=== PATIENT | female | born 1955 | race Asian ===

== ENCOUNTER 2016-09-24 21:05 | Inpatient (IN) | payer MEDICAID ==
[2016-09-24] MEDS ORDERED: Albuterol Nebulizer 2.5mg/3mL HHN PRN (22:56)
[2016-09-24] MEDS ORDERED: Maalox 30 mL Cup PO PRN (22:58)
[2016-09-24 23:01] VITALS: BP 137/72
[2016-09-24] MEDS: D5-0.45NS 1,000 ML IV SCH (23:43)
[2016-09-25] MEDS: Levofloxacin 500mg/100mL 500 MG/100 ML BAG IV SCH ×2 (00:26→23:58)
[2016-09-25] MEDS: metroNIDAZOLE 500mg/NS 100mL 500 MG/100 ML BAG IV SCH ×3 (05:31→21:27)
[2016-09-25 07:02] LABS: % EOSINOPHILS 1.5 % (0.0-5.0); % LYMPHOCYTES 10.5 % (20.0-50.0); HEMATOCRIT 33.4 % (35.0-45.0); HEMOGLOBIN 11.5 gm/dL (11.7-15.5); MEAN CELL VOLUME 82.8 fl (81-100); MEAN CORPUSCULAR HEMOGLOBIN 28.5 pg (27.0-31.0); MEAN CORPUSCULAR HGB CONC 34.5 pg (28.0-36.0); MEAN PLATELET VOLUME 8.5 fl; PLATELET COUNT 221 Th/cmm (150-400); RED BLOOD COUNT 4.04 Mil/cmm (3.80-5.10); RED CELL DISTRIBUTION WIDTH 11.4 % (11.5-20.0); WHITE BLOOD COUNT 8.6 Th/cmm (4.8-10.8)
[2016-09-25 07:08] LABS: ALB/GLOB RATIO 0.9 (1.0-1.8); ANION GAP 6.5 (7.0-16.0); BILIRUBIN,TOTAL 0.6 mg/dL (0.3-1.0); BUN - UREA NITROGEN 10 mg/dL (7-25); BUN/CREATININE RATIO 12.5; CALCIUM SERUM 8.8 mg/dL (8.6-10.3); CARBON DIOXIDE 26.2 mEq/L (21.0-31.0); CHLORIDE 108 mEq/L (98-107); CREATININE - SERUM 0.8 mg/dL (0.6-1.2); GLUCOSE 129 mg/dL (70-105); POTASSIUM SERUM 3.7 mEq/L (3.5-5.1); SGOT 23 U/L (13-39); SGPT/ALT 23 U/L (7-52); SODIUM SERUM 137 mEq/L (136-145)
[2016-09-25 07:09] LABS: ALKALINE PHOSPHATASE 110 U/L (34-104); MAGNESIUM 2.1 mg/dL (1.9-2.7)
[2016-09-25 07:14] LABS: INR 1.08 (0.5-1.4); PROTHROMBIN TIME (TEST) 10.7 SECONDS (9.5-11.5)
[2016-09-25 07:49] LABS: TSH 1.4 uIU/ml (0.34-5.60)
[2016-09-25] MEDS: Morphine Sulfate 2 mg/mL 1mL Syr IVP PRN (09:06)
[2016-09-25] MEDS ORDERED: Morphine Sulfate 2 mg/mL 1mL Syr IVP PRN (11:02)
--- NOTE | 2016-09-25 11:39 | Diagnostic Imaging Report ---
Portable chest x-ray History: Shortness of breath Allowing for portable technique the heart size is normal. No focal pulmonary parenchymal processes. No hilar or mediastinal abnormalities. Impression: No acute abnormalities.
[2016-09-25] MEDS: D5-0.45NS 1,000 ML IV SCH (11:55)
--- NOTE | 2016-09-25 12:05 | Internal Medicine Prog Note ---
Internal Medicine Subjective - Subjective Service Date: 09/25/16 ([id number] ) Internal Medicine Objective - Results Result Diagrams: 09/25/16 05:50 09/25/16 05:50 Recent Labs: Laboratory Last Values WBC 8.6 Th/cmm (4.8-10.8) 09/25/16 05:50 RBC 4.04 Mil/cmm (3.80-5.10) 09/25/16 05:50 Hgb 11.5 gm/dL (11.7-15.5) L 09/25/16 05:50 Hct 33.4 % (35.0-45.0) L 09/25/16 05:50 MCV 82.8 fl (81-100) 09/25/16 05:50 MCH 28.5 pg (27.0-31.0) 09/25/16 05:50 MCHC Differential 34.5 pg (28.0-36.0) 09/25/16 05:50 RDW 11.4 % (11.5-20.0) L 09/25/16 05:50 Plt Count 221 Th/cmm (150-400) 09/25/16 05:50 MPV 8.5 fl 09/25/16 05:50 Neutrophils % 81.0 % (40.0-80.0) H 09/25/16 05:50 Lymphocytes % 10.5 % (20.0-50.0) L 09/25/16 05:50 Monocytes % 7.0 % (2.0-10.0) 09/25/16 05:50 Eosinophils % 1.5 % (0.0-5.0) 09/25/16 05:50 Basophils % 0.0 % (0.0-2.0) 09/25/16 05:50 PT 10.7 SECONDS (9.5-11.5) 09/25/16 05:50 INR 1.08 (0.5-1.4) 09/25/16 05:50 PTT (Actin FS) 26.7 SECONDS (26.0-38.0) 09/25/16 05:50 Sodium 137 mEq/L (136-145) 09/25/16 05:50 Potassium 3.7 mEq/L (3.5-5.1) 09/25/16 05:50 Chloride 108 mEq/L (98-107) H 09/25/16 05:50 Carbon Dioxide 26.2 mEq/L (21.0-31.0) 09/25/16 05:50 Anion Gap 6.5 (7.0-16.0) L 09/25/16 05:50 BUN 10 mg/dL (7-25) 09/25/16 05:50 Creatinine 0.8 mg/dL (0.6-1.2) 09/25/16 05:50 Est GFR ( Amer) > 60.0 ml/min (>90) 09/25/16 05:50 Est GFR (Non-Af Amer) > 60.0 ml/min 09/25/16 05:50 BUN/Creatinine Ratio 12.5 09/25/16 05:50 Glucose 129 mg/dL (70-105) H 09/25/16 05:50 Calcium 8.8 mg/dL (8.6-10.3) 09/25/16 05:50 Magnesium 2.1 mg/dL (1.9-2.7) 09/25/16 05:50 Total Bilirubin 0.6 mg/dL (0.3-1.0) 09/25/16 05:50 AST 23 U/L (13-39) 09/25/16 05:50 ALT 23 U/L (7-52) 09/25/16 05:50 Alkaline Phosphatase 110 U/L (34-104) H 09/25/16 05:50 Ammonia 53 umol/L (16-53) 09/25/16 05:50 Total Protein 7.7 gm/dL (6.0-8.3) 09/25/16 05:50 Albumin 3.6 gm/dL (3.7-5.3) L 09/25/16 05:50 Globulin 4.1 gm/dL 09/25/16 05:50 Albumin/Globulin Ratio 0.9 (1.0-1.8) L 09/25/16 05:50 TSH 1.40 uIU/ml (0.34-5.60) 09/25/16 05:50 - Physical Exam Vitals and I&O: Vital Signs Temp 97.2 F 09/25/16 00:00 Pulse 86 09/25/16 08:00 Resp 16 09/25/16 08:00 BP 128/77 09/25/16 00:00 Pulse Ox 99 09/25/16 08:00 Intake & Output 09/24/16 09/25/16 09/25/16 18:59 06:59 18:59 Intake Total 975 Balance 975 Weight (lbs) 134 lb 3.2 oz Intake: Intake, IV Amount 975 D5-0.45NS 1,000 ml @ 100 975 mls/hr IV .Q10H [facility] Rx#: [id number] Active Medications: Current Medications Acetaminophen (Tylenol) 650 mg PO Q4HR PRN PRN Reason: Pain or Fever >101 Stop: 11/23/16 22:57 Al Hydrox/Mg Hydrox/Simethicone (Maalox) 30 ml PO Q6HR PRN PRN Reason: GI DISTRESS Stop: 11/23/16 22:57 Albuterol Sulfate (Albuterol 2.5mg/3ml Neb Ud) 2.5 mg HHN Q2HR PRN PRN Reason: Shortness of Breath or Wheeze Stop: 11/23/16 22:55 Clonidine HCl (Catapres) 0.1 mg PO Q6HR PRN PRN Reason: SBP GREATER THAN 160 Stop: 11/23/16 22:55 Heparin Sodium (Porcine) (Heparin) 5,000 units SUBQ Q12HR [facility] Stop: 11/24/16 08:59 Last Admin: 09/25/16 09:06 Dose: 5,000 units Dextrose/Sodium Chloride (D5-0.45ns) 1,000 mls @ 100 mls/hr IV .Q10H [facility] Stop: 11/23/16 22:59 Last Admin: 09/25/16 11:55 Dose: 100 mls/hr Levofloxacin (Levaquin Pb) 500 mg in 100 mls @ 100 mls/hr IV Q24HR [facility] Stop: 11/23/16 22:59 Last Admin: 09/25/16 00:26 Dose: 100 mls/hr Metronidazole (Flagyl) 500 mg in 100 mls @ 100 mls/hr IV Q8HR [facility] Stop: 11/24/16 04:59 Last Admin: 09/25/16 05:31 Dose: 100 mls/hr Ketorolac Tromethamine (Toradol) 30 mg IV Q6H PRN PRN Reason: Pain Stop: 09/30/16 11:28 Last Admin: 02/13/17 11:54 Dose: 30 mg Meclizine HCl (Antivert) 25 mg PO DAILY PRN PRN Reason: Nausea / Vomiting Stop: 11/23/16 22:55 Morphine Sulfate (Morphine) 2 mg IVP Q4HR PRN PRN Reason: Pain (Severe) Stop: 11/23/16 23:00 Last Admin: 09/25/16 09:06 Dose: 2 mg Morphine Sulfate (Morphine) 2 mg IVP NOW PRN PRN Reason: Pain (Severe) Stop: 11/24/16 11:01 Last Admin: 09/25/16 11:14 Dose: 2 mg Ondansetron HCl (Zofran) 4 mg IV Q8H PRN PRN Reason: Nausea / Vomiting Stop: 11/23/16 22:57 Last Admin: 09/25/16 09:39 Dose: 4 mg Zolpidem Tartrate (Ambien) 10 mg PO HS PRN PRN Reason: Insomnia Stop: 11/23/16 22:55 Last Admin: 09/25/16 00:37 Dose: 10 mg Internal Medicine Assmt/Plan - Assessment Assessment: abd pain acute cholecystitis intractable vomitting
[2016-09-25] MEDS ORDERED: Bupivacaine 0.5% W/Ep 10 mL Vial INJ ONE (13:15)
[2016-09-25] MEDS ORDERED: Midazolam 1mg/ml 2 ml vial IV ONE (13:31)
--- NOTE | 2016-09-25 13:41 | History & Physical ---
CHIEF COMPLAINT: Abdominal pain. HISTORY OF PRESENT ILLNESS: This is a 61-year-old [place] female who is a direct admission from [facility]. According to son at bedside, the patient has been having a 1-week history of abdominal pain associated with nausea and vomiting, but denied any fevers. Due to the severity of pain, the patient was brought to the [place] ER yesterday. For continuation of care, the patient is now here at [facility]. PAST SURGICAL HISTORY: None per patient. ALLERGIES: No drug allergies. SOCIAL HISTORY: The patient denies any smoking, drinking, or any alcohol usage. FAMILY HISTORY: Noncontributory. REVIEW OF SYSTEMS: GENERAL: Denies any fever or chills, but complains of 10/10 pain. CARDIOVASCULAR: Denies any chest pain. RESPIRATORY: Denies any shortness of breath. GASTROINTESTINAL: Complains of abdominal pain, nausea and vomiting as well. All other systems are reviewed by me and are negative. MEDICATIONS: GENERAL: The patient appears in severe pain. VITAL SIGNS: Temperature 97.2, heart rate 69, blood pressure 120/77, respirations 18, O2 sat 98%. HEENT: Head; normocephalic, atraumatic. NECK: Supple. No mass. LUNGS: Clear bilaterally upon auscultation. HEART: Regular rate and rhythm. No murmurs or gallops. SKIN: Intact, warm and dry to touch. ABDOMEN: Right upper quadrant noted with tenderness. LABORATORY DATA: WBC 8.6, H 12.5 and 33.4. Sodium 137, potassium 3.7, BUN 10, creatinine 0.8. The patient had a chest x-ray done here, the impression is no acute abnormalities. ASSESSMENT: Abdominal pain, acute cholecystitis, intractable vomiting. PLAN: The patient to be admitted to the med/surg unit. The patient will have a consultation with Dr. Romano. IV fluids for hydration. The patient will be kept n.p.o. for now, Levaquin IV q. 24 and Pain Management and also Flagyl 500 mg IV. We will continue to monitor the patient. JOB# [id number]
[2016-09-25] MEDS ORDERED: Meperidine 50 mg/mL 1mL Syr ONE (13:46)
[2016-09-25] MEDS ORDERED: Neostigmine 10mg/10mL Vial ONE (13:56)
[2016-09-25] MEDS ORDERED: Meperidine 25 mg/mL 1mL Syr IVP PRN (14:39)
[2016-09-25] MEDS ORDERED: Lactated Ringer 1,000 ML IV SCH (14:45)
[2016-09-25] MEDS ORDERED: Bupivacaine 0.5% W/Ep 10 mL Vial ONE ×3 (14:59)
[2016-09-25] MEDS ORDERED: Meperidine 25 mg/mL 1mL Syr ONE (15:12)
--- NOTE | 2016-09-25 15:21 | Consultation ---
REFERRING PHYSICIAN: Dr. Bailon. REASON FOR CONSULTATION: Severe abdominal pain. Thank you for referring this patient to me. HISTORY OF PRESENT ILLNESS: This is a 61-year-old female who has been having pain in the epigastric area for the last 1 week with nausea and vomiting. She was seen at [facility] and gallbladder ultrasound showed stones. She was sent to the ER at this facility. LABORATORY STUDIES: Show the WBC to be normal, hemoglobin 11.5, platelet count is normal. Chemistry: Liver function tests are within normal limits. EKG and chest x-ray were done. test done, negative. PHYSICAL EXAMINATION: ABDOMEN: Severe tenderness in the right upper quadrant radiating to the back. The patient is writhing about in pain. IMPRESSION: Severe calculus cholecystitis. PLAN: Laparoscopic versus open cholecystectomy. Informed consent discussed with the son who speaks [place] well and complications also discussed including infection, bleeding and biliary leakage. We will take to surgery as soon as possible. [facility]# [id number] [facility]
--- NOTE | 2016-09-25 19:28 | Operative Report ---
PREOPERATIVE DIAGNOSIS: Calculous cholecystitis, acute POSTOPERATIVE DIAGNOSIS: Hydrops of the gallbladder ESTIMATED BLOOD LOSS: 30 mL. SURGEON: Piotr Romano M.D. ANESTHESIA: General. ANESTHESIOLOGIST: Obdulia Mcgregor M.D. OPERATIVE FINDINGS: Markedly inflamed gallbladder with thick wall. Because of distention, the gallbladder had to be evacuated. Culture was taken of the gallbladder content. DESCRIPTION OF PROCEDURE: The patient was given general anesthesia. The abdomen was prepped with ChloraPrep and draped in appropriate manner. A supraumbilical incision was made along the skin line. A Veress needle was inserted. Insufflation with CO2 was carried out successfully. A 10 mm trocar was placed through this endoscope was introduced. There was good visualization of the intra-abdominal cavity. The omentum was adhered to the gallbladder. Another 10 mm trocar was placed in upper abdomen and two 5 mm trocars were placed in the right flank. The operating table was elevated at the head and turned to the left side. The omentum was freed from its attachment to the gallbladder. Because of marked distention of the gallbladder, this was aspirated with an 18-gauge needle. The fundus and infundibulum of the gallbladder was then grasped and blunt dissection was carried out at the infundibulum stripping away very edematous tissues. Two photographs were taken at this point. The cystic duct was identified. This was rather large and this was clipped with large clips, 3 towards the common duct and ____ proximally and divided. Cystic artery was next identified and clipped and good control was done after several applications. The gallbladder was removed in appropriate fashion with blunt and sharp dissection with cautery. There was oozing of the liver bed, which was cauterized. Irrigation with saline solution was done and was insufflated into the gallbladder area and a Monster-Stanley drain was left to better monitor any drainage from the liver bed. A 0.5% Marcaine was injected into the incision sites. The skin was closed with richelle. The patient tolerated the procedure well. JOB# [id number]
--- NOTE | 2016-09-26 03:39 | Admit Criteria Form ---
Admit Criteria Forms - Admit Criteria Diagnosis: GALLBLADDER OR BILE DUCT INFLAMMATION OR STONE Clinical Indications for Admission to Inpatient Care ( Place 'X' for any and all applicable criteria): Admission is indicated for patients with ANY ONE of the following(1)(2)(3)(4)(5) : [ ]I. Acute cholecystitis as indicated by ALL of the following: [ ]a) Right upper quadrant pain, mass, or tenderness [ ]b) Systemic signs of inflammation indicated by ANY ONE of the following: [ ]i) Fever [ ]ii) C-reactive protein level greater than 10 mg/L (95 nmol/L) [ ]iii) White blood cell count greater than 10,000/mm3 (10 x109/L) or less than 4000/mm3 (4 x109/L) [X]II. Inpatient admission required rather than observation care (Also use Gallbladder or Bile Duct Inflammation or Stone: Observation Care as appropriate) because of ANY ONE of the following: [ ]a) Common bile duct obstruction diagnosed [X]b) Vomiting that is severe or persistent [X]c) Severe pain requiring acute inpatient management [ ]d) Signs of intestinal obstruction or peritonitis [A] [ ]e) Severe electrolyte abnormalities requiring inpatient care [ ]f) Absent bowel sounds with complete ileus(8) [ ]g) Hemodynamic instability [ ]h) High fever or infection requiring inpatient admission as indicated by ANY ONE of the following (9): [ ]1) Appropriate outpatient or observation care antimicrobial Treatment. unavailable, not effective, or not feasible [ ]2) Temperature greater than 104.9 degrees F (40.5 degrees C) (oral) [ ]3) Temperature greater than 103.1 degrees F (39.5 degrees C) (oral) or less than 96.8 degrees F (36 degrees C) (rectal) that does not respond to all emergency treatment measures [ ]4) Documented bacteremia [ ]i) IV fluid to replace significant ongoing losses (greater than 3 L/m2 per day) [ ]j) Percutaneous or open drainage (eg, abscess, biliary tract) procedures [X ]k) Immediate inpatient surgery [ ]l) Other condition, treatment or monitoring requiring inpatient admission [ ]III. Acute cholangitis as indicated by ALL of the following(9)(10): [ ]a) Systemic signs of inflammation indicated by ANY ONE of the following: [ ]i) Fever [ ]ii) C-reactive protein level greater than 10 mg/L (95 nmol /L) [ ]iii) White blood cell count greater than 10,000/mm3 (10 x109/L) or less than 4000/mm3 (4 x109/L) [ ]b) Evidence of common bile duct disease indicated by ANY ONE of the following: [ ]i) Total serum bilirubin level greater than or equal to 2 mg/dL (34 micromoles/L) [ ]ii) Liver function test (alkaline phosphatase (ALP), r- glutamyltransferase (GGT), aspartate aminotransferase (AST), or alanine aminotransferase (ALT)) greater than 1.5 times the upper limit of normal[B] [ ]iii) Hepatobiliary imaging showing biliary dilatation or evidence of etiology (eg, stricture, stone, previously placed stent) Extended stay beyond goal length of stay may be needed for (1)(2)): [ ]a) Bacteremia or Hemodynamic instability [ ]b) Cholecystectomy [ ]c) Other surgical procedure(24) [ ]d) Percutaneous or endoscopic ultrasound-guided cholecystostomy The original [facility] [employer] content created by [facility] [employer] has been revised. The portions of the content which have been revised are identified through the use of italic text or in bold, and [facility] has neither reviewed nor approved the modified material. All other unmodified content is copyright [facility]. Please see references footnoted in the original [facility] edition 2016 Admit Criteria Met?: Yes
[2016-09-26] MEDS: metroNIDAZOLE 500mg/NS 100mL 500 MG/100 ML BAG IV SCH (05:04)
[2016-09-26 05:15] LABS: URINE BILIRUBIN NEGATIVE (NEGATIVE); URINE BLOOD NEGATIVE (NEGATIVE); URINE COLOR YELLOW; URINE GLUCOSE (UA) 250 mg/dL (NEGATIVE); URINE KETONE NEGATIVE (NEGATIVE); URINE PROTEIN NEGATIVE (NEGATIVE); URINE RBC 0-2 /hpf (0-5); URINE WBC 0-2 /hpf (0-5)
[2016-09-26 05:16] LABS: URINE BACTERIA OCCASIONAL /hpf (NONE SEEN); URINE EPITHELIAL CELLS OCCASIONAL /lpf (FEW)
[2016-09-26] MEDS: Morphine Sulfate 2 mg/mL 1mL Syr IVP PRN ×4 (05:21→17:51)
[2016-09-26 07:08] LABS: % BASOPHILS 0.3 % (0.0-2.0); % EOSINOPHILS 1.3 % (0.0-5.0); % LYMPHOCYTES 14.8 % (20.0-50.0); % MONOCYTES 8.2 % (2.0-10.0); % NEUTROPHILS 75.4 % (40.0-80.0); HEMATOCRIT 34.7 % (35.0-45.0); HEMOGLOBIN 11.6 gm/dL (11.7-15.5); MEAN CELL VOLUME 84.2 fl (81-100); MEAN CORPUSCULAR HEMOGLOBIN 28.1 pg (27.0-31.0); MEAN CORPUSCULAR HGB CONC 33.4 pg (28.0-36.0); MEAN PLATELET VOLUME 8.9 fl; NEUTROPHILE ABSOLUTE 4.7 Th/cmm (1.8-8.0); PLATELET COUNT 228 Th/cmm (150-400); RED BLOOD COUNT 4.12 Mil/cmm (3.80-5.10); RED CELL DISTRIBUTION WIDTH 11.3 % (11.5-20.0)
[2016-09-26 07:21] LABS: WHITE BLOOD COUNT 6.2 Th/cmm (4.8-10.8)
[2016-09-26 07:33] LABS: ALB/GLOB RATIO 0.9 (1.0-1.8); ALKALINE PHOSPHATASE 269 U/L (34-104); ANION GAP 5.1 (7.0-16.0); BILIRUBIN,TOTAL 3.1 mg/dL (0.3-1.0); BUN - UREA NITROGEN 5 mg/dL (7-25); BUN/CREATININE RATIO 6.3; CALCIUM SERUM 8.8 mg/dL (8.6-10.3); CARBON DIOXIDE 25.5 mEq/L (21.0-31.0); CHLORIDE 110 mEq/L (98-107); CREATININE - SERUM 0.8 mg/dL (0.6-1.2); GLUCOSE 99 mg/dL (70-105); POTASSIUM SERUM 3.6 mEq/L (3.5-5.1); SGOT 309 U/L (13-39); SGPT/ALT 190 U/L (7-52); SODIUM SERUM 137 mEq/L (136-145)
--- NOTE | 2016-09-26 09:32 | General Progress Note ---
Subjective - Review of Systems Service Date: 09/26/16 Events since last encounter: LFT elevated ANDRES drainage moderate in less pain repeat labs in AM OOB, ambulate stay on clear liquids Objective - Results Result Diagrams: 09/26/16 05:25 09/26/16 05:25 Recent Labs: Laboratory Last Values WBC 6.2 Th/cmm (4.8-10.8) D 09/26/16 05:25 RBC 4.12 Mil/cmm (3.80-5.10) 09/26/16 05:25 Hgb 11.6 gm/dL (11.7-15.5) L 09/26/16 05:25 Hct 34.7 % (35.0-45.0) L 09/26/16 05:25 MCV 84.2 fl (81-100) 09/26/16 05:25 MCH 28.1 pg (27.0-31.0) 09/26/16 05:25 MCHC Differential 33.4 pg (28.0-36.0) 09/26/16 05:25 RDW 11.3 % (11.5-20.0) L 09/26/16 05:25 Plt Count 228 Th/cmm (150-400) 09/26/16 05:25 MPV 8.9 fl 09/26/16 05:25 Neutrophils % 75.4 % (40.0-80.0) 09/26/16 05:25 Lymphocytes % 14.8 % (20.0-50.0) L 09/26/16 05:25 Monocytes % 8.2 % (2.0-10.0) 09/26/16 05:25 Eosinophils % 1.3 % (0.0-5.0) 09/26/16 05:25 Basophils % 0.3 % (0.0-2.0) 09/26/16 05:25 PT 10.7 SECONDS (9.5-11.5) 09/25/16 05:50 INR 1.08 (0.5-1.4) 09/25/16 05:50 PTT (Actin FS) 26.7 SECONDS (26.0-38.0) 09/25/16 05:50 Sodium 137 mEq/L (136-145) 09/26/16 05:25 Potassium 3.6 mEq/L (3.5-5.1) 09/26/16 05:25 Chloride 110 mEq/L (98-107) H 09/26/16 05:25 Carbon Dioxide 25.5 mEq/L (21.0-31.0) 09/26/16 05:25 Anion Gap 5.1 (7.0-16.0) L 09/26/16 05:25 BUN 5 mg/dL (7-25) L 09/26/16 05:25 Creatinine 0.8 mg/dL (0.6-1.2) 09/26/16 05:25 Est GFR ( Amer) > 60.0 ml/min (>90) 09/26/16 05:25 Est GFR (Non-Af Amer) > 60.0 ml/min 09/26/16 05:25 BUN/Creatinine Ratio 6.3 09/26/16 05:25 Glucose 99 mg/dL (70-105) 09/26/16 05:25 Calcium 8.8 mg/dL (8.6-10.3) 09/26/16 05:25 Magnesium 2.1 mg/dL (1.9-2.7) 09/25/16 05:50 Total Bilirubin 3.1 mg/dL (0.3-1.0) H 09/26/16 05:25 AST 309 U/L (13-39) H 09/26/16 05:25 ALT 190 U/L (7-52) H 09/26/16 05:25 Alkaline Phosphatase 269 U/L (34-104) H 09/26/16 05:25 Ammonia 53 umol/L (16-53) 09/25/16 05:50 Total Protein 7.3 gm/dL (6.0-8.3) 09/26/16 05:25 Albumin 3.4 gm/dL (3.7-5.3) L 09/26/16 05:25 Globulin 3.9 gm/dL 09/26/16 05:25 Albumin/Globulin Ratio 0.9 (1.0-1.8) L 09/26/16 05:25 TSH 1.40 uIU/ml (0.34-5.60) 09/25/16 05:50 Urine Source RANDOM 09/25/16 20:15 Urine Color YELLOW 09/25/16 20:15 Urine Clarity CLEAR (CLEAR) 09/25/16 20:15 Urine pH 7.0 09/25/16 20:15 Ur Specific [place] 1.015 (1.005-1.030) 09/25/16 20:15 Urine Protein NEGATIVE mg/dL (NEGATIVE) 09/25/16 20:15 Urine Glucose (UA) 250 mg/dL (NEGATIVE) H 09/25/16 20:15 Urine Ketones NEGATIVE mg/dL (NEGATIVE) 09/25/16 20:15 Urine Blood NEGATIVE (NEGATIVE) 09/25/16 20:15 Urine Nitrate NEGATIVE (NEGATIVE) 09/25/16 20:15 Urine Bilirubin NEGATIVE (NEGATIVE) 09/25/16 20:15 Urine Urobilinogen 4.0 E.U./dL (0.2 - 1.0) H 09/25/16 20:15 Ur Leukocyte Esterase NEGATIVE (NEGATIVE) 09/25/16 20:15 Urine RBC 0-2 /hpf (0-5) 09/25/16 20:15 Urine WBC 0-2 /hpf (0-5) 09/25/16 20:15 Ur Epithelial Cells OCCASIONAL /lpf (FEW) 09/25/16 20:15 Urine Bacteria OCCASIONAL /hpf (NONE SEEN) 09/25/16 20:15 - Physical Exam Vitals and I&O: Vital Signs Temp 99.0 F 09/26/16 04:00 Pulse 67 09/26/16 07:57 Resp 18 09/26/16 07:57 BP 128/74 09/26/16 04:00 Pulse Ox 99 09/26/16 07:57 Intake & Output 09/25/16 09/26/16 09/26/16 18:59 06:59 18:59 Intake Total 975 300 Balance 975 300 Intake: Intake, IV Amount 975 300 D5-0.45NS 1,000 ml @ 100 975 mls/hr IV .Q10H [facility] Rx#: [id number] Levofloxacin 500mg/100mL 100 500 mg In 100 ml @ 100 mls/hr IV Q24HR [facility] Rx#: [id number] metroNIDAZOLE 500mg/NS 200 100mL 500 mg In 100 ml @ 100 mls/hr IV Q8HR [facility] Rx #:[id number] Active Medications: Current Medications Acetaminophen (Tylenol) 650 mg PO Q4HR PRN PRN Reason: Pain or Fever >101 Stop: 11/23/16 22:57 Al Hydrox/Mg Hydrox/Simethicone (Maalox) 30 ml PO Q6HR PRN PRN Reason: GI DISTRESS Stop: 11/23/16 22:57 Albuterol Sulfate (Albuterol 2.5mg/3ml Neb Ud) 2.5 mg HHN Q2HR PRN PRN Reason: Shortness of Breath or Wheeze Stop: 11/23/16 22:55 Clonidine HCl (Catapres) 0.1 mg PO Q6HR PRN PRN Reason: SBP GREATER THAN 160 Stop: 11/23/16 22:55 Heparin Sodium (Porcine) (Heparin) 5,000 units SUBQ Q12HR [facility] Stop: 11/24/16 08:59 Last Admin: 09/26/16 09:26 Dose: 5,000 units Dextrose/Sodium Chloride (D5-0.45ns) 1,000 mls @ 100 mls/hr IV .Q10H [facility] Stop: 11/23/16 22:59 Last Admin: 09/25/16 11:55 Dose: 100 mls/hr Levofloxacin (Levaquin Pb) 500 mg in 100 mls @ 100 mls/hr IV Q24HR [facility] Stop: 11/23/16 22:59 Last Infusion: 09/26/16 00:58 Dose: Infused Metronidazole (Flagyl) 500 mg in 100 mls @ 100 mls/hr IV Q8HR [facility] Stop: 11/24/16 04:59 Last Infusion: 09/26/16 06:04 Dose: Infused Ketorolac Tromethamine (Toradol) 30 mg IV Q6H PRN PRN Reason: Pain Stop: 09/30/16 11:28 Last Admin: 09/25/16 11:54 Dose: 30 mg Meclizine HCl (Antivert) 25 mg PO DAILY PRN PRN Reason: Nausea / Vomiting Stop: 11/23/16 22:55 Morphine Sulfate (Morphine) 2 mg IVP Q4HR PRN PRN Reason: Pain (Severe) Stop: 11/23/16 23:00 Last Admin: 09/26/16 05:21 Dose: 2 mg Morphine Sulfate (Morphine) 2 mg IVP NOW PRN PRN Reason: Pain (Severe) Stop: 11/24/16 11:01 Last Admin: 09/25/16 11:14 Dose: 2 mg Ondansetron HCl (Zofran) 4 mg IV Q8H PRN PRN Reason: Nausea / Vomiting Stop: 11/23/16 22:57 Last Admin: 09/25/16 09:39 Dose: 4 mg Zolpidem Tartrate (Ambien) 10 mg PO HS PRN PRN Reason: Insomnia Stop: 11/23/16 22:55 Last Admin: 09/25/16 21:23 Dose: 10 mg
--- NOTE | 2016-09-26 11:38 | Internal Medicine Prog Note ---
Internal Medicine Subjective - Subjective Service Date: 09/26/16 (s/p lap zelda, shayla drain in place, patient appears a bit jaunice ) Patient seen and examined:: with staff Patient is:: awake Internal Medicine Objective - Results Result Diagrams: 09/26/16 05:25 09/26/16 05:25 Recent Labs: Laboratory Last Values WBC 6.2 Th/cmm (4.8-10.8) D 09/26/16 05:25 RBC 4.12 Mil/cmm (3.80-5.10) 09/26/16 05:25 Hgb 11.6 gm/dL (11.7-15.5) L 09/26/16 05:25 Hct 34.7 % (35.0-45.0) L 09/26/16 05:25 MCV 84.2 fl (81-100) 09/26/16 05:25 MCH 28.1 pg (27.0-31.0) 09/26/16 05:25 MCHC Differential 33.4 pg (28.0-36.0) 09/26/16 05:25 RDW 11.3 % (11.5-20.0) L 09/26/16 05:25 Plt Count 228 Th/cmm (150-400) 09/26/16 05:25 MPV 8.9 fl 09/26/16 05:25 Neutrophils % 75.4 % (40.0-80.0) 09/26/16 05:25 Lymphocytes % 14.8 % (20.0-50.0) L 09/26/16 05:25 Monocytes % 8.2 % (2.0-10.0) 09/26/16 05:25 Eosinophils % 1.3 % (0.0-5.0) 09/26/16 05:25 Basophils % 0.3 % (0.0-2.0) 09/26/16 05:25 PT 10.7 SECONDS (9.5-11.5) 09/25/16 05:50 INR 1.08 (0.5-1.4) 09/25/16 05:50 PTT (Actin FS) 26.7 SECONDS (26.0-38.0) 09/25/16 05:50 Sodium 137 mEq/L (136-145) 09/26/16 05:25 Potassium 3.6 mEq/L (3.5-5.1) 09/26/16 05:25 Chloride 110 mEq/L (98-107) H 09/26/16 05:25 Carbon Dioxide 25.5 mEq/L (21.0-31.0) 09/26/16 05:25 Anion Gap 5.1 (7.0-16.0) L 09/26/16 05:25 BUN 5 mg/dL (7-25) L 09/26/16 05:25 Creatinine 0.8 mg/dL (0.6-1.2) 09/26/16 05:25 Est GFR ( Amer) > 60.0 ml/min (>90) 09/26/16 05:25 Est GFR (Non-Af Amer) > 60.0 ml/min 09/26/16 05:25 BUN/Creatinine Ratio 6.3 09/26/16 05:25 Glucose 99 mg/dL (70-105) 09/26/16 05:25 Calcium 8.8 mg/dL (8.6-10.3) 09/26/16 05:25 Magnesium 2.1 mg/dL (1.9-2.7) 09/25/16 05:50 Total Bilirubin 3.1 mg/dL (0.3-1.0) H 09/26/16 05:25 AST 309 U/L (13-39) H 09/26/16 05:25 ALT 190 U/L (7-52) H 09/26/16 05:25 Alkaline Phosphatase 269 U/L (34-104) H 09/26/16 05:25 Ammonia 53 umol/L (16-53) 09/25/16 05:50 Total Protein 7.3 gm/dL (6.0-8.3) 09/26/16 05:25 Albumin 3.4 gm/dL (3.7-5.3) L 09/26/16 05:25 Globulin 3.9 gm/dL 09/26/16 05:25 Albumin/Globulin Ratio 0.9 (1.0-1.8) L 09/26/16 05:25 TSH 1.40 uIU/ml (0.34-5.60) 09/25/16 05:50 Urine Source RANDOM 09/25/16 20:15 Urine Color YELLOW 09/25/16 20:15 Urine Clarity CLEAR (CLEAR) 09/25/16 20:15 Urine pH 7.0 09/25/16 20:15 Ur Specific [place] 1.015 (1.005-1.030) 09/25/16 20:15 Urine Protein NEGATIVE mg/dL (NEGATIVE) 09/25/16 20:15 Urine Glucose (UA) 250 mg/dL (NEGATIVE) H 09/25/16 20:15 Urine Ketones NEGATIVE mg/dL (NEGATIVE) 09/25/16 20:15 Urine Blood NEGATIVE (NEGATIVE) 09/25/16 20:15 Urine Nitrate NEGATIVE (NEGATIVE) 09/25/16 20:15 Urine Bilirubin NEGATIVE (NEGATIVE) 09/25/16 20:15 Urine Urobilinogen 4.0 E.U./dL (0.2 - 1.0) H 09/25/16 20:15 Ur Leukocyte Esterase NEGATIVE (NEGATIVE) 09/25/16 20:15 Urine RBC 0-2 /hpf (0-5) 09/25/16 20:15 Urine WBC 0-2 /hpf (0-5) 09/25/16 20:15 Ur Epithelial Cells OCCASIONAL /lpf (FEW) 09/25/16 20:15 Urine Bacteria OCCASIONAL /hpf (NONE SEEN) 09/25/16 20:15 - Physical Exam Vitals and I&O: Vital Signs Temp 99.0 F 09/26/16 04:00 Pulse 67 09/26/16 07:57 Resp 18 09/26/16 07:57 BP 128/74 09/26/16 04:00 Pulse Ox 99 09/26/16 07:57 Intake & Output 09/25/16 09/26/16 09/26/16 18:59 06:59 18:59 Intake Total 975 300 Balance 975 300 Intake: Intake, IV Amount 975 300 D5-0.45NS 1,000 ml @ 100 975 mls/hr IV .Q10H [facility] Rx#: [id number] Levofloxacin 500mg/100mL 100 500 mg In 100 ml @ 100 mls/hr IV Q24HR [facility] Rx#: [id number] metroNIDAZOLE 500mg/NS 200 100mL 500 mg In 100 ml @ 100 mls/hr IV Q8HR [facility] Rx #:[id number] Active Medications: Current Medications Acetaminophen (Tylenol) 650 mg PO Q4HR PRN PRN Reason: Pain or Fever >101 Stop: 11/23/16 22:57 Al Hydrox/Mg Hydrox/Simethicone (Maalox) 30 ml PO Q6HR PRN PRN Reason: GI DISTRESS Stop: 11/23/16 22:57 Albuterol Sulfate (Albuterol 2.5mg/3ml Neb Ud) 2.5 mg HHN Q2HR PRN PRN Reason: Shortness of Breath or Wheeze Stop: 11/23/16 22:55 Clonidine HCl (Catapres) 0.1 mg PO Q6HR PRN PRN Reason: SBP GREATER THAN 160 Stop: 11/23/16 22:55 Heparin Sodium (Porcine) (Heparin) 5,000 units SUBQ Q12HR [facility] Stop: 11/24/16 08:59 Last Admin: 09/26/16 09:26 Dose: 5,000 units Dextrose/Sodium Chloride (D5-0.45ns) 1,000 mls @ 100 mls/hr IV .Q10H [facility] Stop: 11/23/16 22:59 Last Admin: 09/25/16 11:55 Dose: 100 mls/hr Levofloxacin (Levaquin Pb) 500 mg in 100 mls @ 100 mls/hr IV Q24HR [facility] Stop: 11/23/16 22:59 Last Infusion: 09/26/16 00:58 Dose: Infused Metronidazole (Flagyl) 500 mg in 100 mls @ 100 mls/hr IV Q8HR [facility] Stop: 11/24/16 04:59 Last Infusion: 09/26/16 06:04 Dose: Infused Ketorolac Tromethamine (Toradol) 30 mg IV Q6H PRN PRN Reason: Pain Stop: 09/30/16 11:28 Last Admin: 09/25/16 11:54 Dose: 30 mg Meclizine HCl (Antivert) 25 mg PO DAILY PRN PRN Reason: Nausea / Vomiting Stop: 11/23/16 22:55 Morphine Sulfate (Morphine) 2 mg IVP Q4HR PRN PRN Reason: Pain (Severe) Stop: 11/23/16 23:00 Last Admin: 09/26/16 09:52 Dose: 2 mg Morphine Sulfate (Morphine) 2 mg IVP NOW PRN PRN Reason: Pain (Severe) Stop: 11/24/16 11:01 Last Admin: 09/25/16 11:14 Dose: 2 mg Ondansetron HCl (Zofran) 4 mg IV Q8H PRN PRN Reason: Nausea / Vomiting Stop: 11/23/16 22:57 Last Admin: 09/25/16 09:39 Dose: 4 mg Zolpidem Tartrate (Ambien) 10 mg PO HS PRN PRN Reason: Insomnia Stop: 11/23/16 22:55 Last Admin: 09/25/16 21:23 Dose: 10 mg General: alert HEENT: NC/AT, PERRLA Neck: Supple Lungs: CTAB Cardiovascular: RRR, Normal S1, Normal S2, without murmur Abdomen: soft non-tender, non-distended Internal Medicine Assmt/Plan - Assessment Assessment: abd pain acute cholecystitis intractable vomitting - Plan Plan: pain mgmt educated patient importance of deep breathing incentive spirometry monitor lfts ivf for hydration encourage to ambulate f/u labs
[2016-09-26 14:17] LABS: FOLIC ACID 15.8 ng/mL (>3.0)
[2016-09-26] MEDS: Levofloxacin 500mg/100mL 500 MG/100 ML BAG IV SCH (22:06)
[2016-09-27] MEDS: D5-0.45NS 1,000 ML IV SCH ×2 (06:24→09:39)
[2016-09-27 07:01] LABS: % BASOPHILS 0.8 % (0.0-2.0); % EOSINOPHILS 2.5 % (0.0-5.0); % LYMPHOCYTES 24.2 % (20.0-50.0); % MONOCYTES 8.5 % (2.0-10.0); HEMATOCRIT 35.7 % (35.0-45.0); MEAN CELL VOLUME 83.6 fl (81-100); MEAN CORPUSCULAR HEMOGLOBIN 28.1 pg (27.0-31.0); MEAN CORPUSCULAR HGB CONC 33.6 pg (28.0-36.0); MEAN PLATELET VOLUME 8.2 fl; NEUTROPHILE ABSOLUTE 3.8 Th/cmm (1.8-8.0); PLATELET COUNT 256 Th/cmm (150-400); RED BLOOD COUNT 4.26 Mil/cmm (3.80-5.10); RED CELL DISTRIBUTION WIDTH 11.5 % (11.5-20.0); WHITE BLOOD COUNT 5.8 Th/cmm (4.8-10.8)
--- NOTE | 2016-09-27 07:15 | Consultation ---
The patient was seen, chart reviewed, discussed with staff. HISTORY OF PRESENT ILLNESS: The patient is a 61-year-old female with multiple medical problems including nausea and vomiting for the past week. She was seen by Surgery for laparoscopic versus open cholecystectomy. The patient has been feeling sad and depressed, but no suicidal thoughts. She reports history of depression. Three years ago, she had suicidal thoughts. The patient has not been taking any medications for depression. The patient reports lack of energy and crying spells. She said she has been depressed for a while. PAST PSYCHIATRIC HISTORY: As per above. No prior suicide attempts, but she had suicidal ideation as per report. PAST MEDICAL HISTORY: As per H and P. PSYCHOSOCIAL HISTORY: Family is supportive. The patient is originally from [facility], but she resides in [place]. Son has been visiting. MENTAL STATUS EXAMINATION: The patient is cooperative. Speech fluent, not pressured, low tone. Affect is depressed. No auditory or visual hallucinations. Oriented x3. No suicidal thoughts. ASSESSMENT: Major depressive disorder, recurrent, moderate. PLAN: At this time, I would recommend continuation of medical supportive measures. We will add Lexapro 10 mg daily. Monitor condition closely. Thank you for your consultation. JOB# [id number]
[2016-09-27 07:19] LABS: ALB/GLOB RATIO 0.8 (1.0-1.8); ALKALINE PHOSPHATASE 244 U/L (34-104); ANION GAP 6.2 (7.0-16.0); BILIRUBIN,TOTAL 1.7 mg/dL (0.3-1.0); BUN - UREA NITROGEN 3 mg/dL (7-25); BUN/CREATININE RATIO 3.8; CALCIUM SERUM 8.6 mg/dL (8.6-10.3); CARBON DIOXIDE 27.8 mEq/L (21.0-31.0); CHLORIDE 107 mEq/L (98-107); CREATININE - SERUM 0.8 mg/dL (0.6-1.2); GLUCOSE 101 mg/dL (70-105); SGOT 149 U/L (13-39); SGPT/ALT 160 U/L (7-52); SODIUM SERUM 138 mEq/L (136-145)
--- NOTE | 2016-09-27 08:33 | General Progress Note ---
Subjective - Review of Systems Service Date: 09/27/16 Events since last encounter: ANDRES drainage 90 cc overnight less pain, tolerating clear liquids Bilirubin down to 1.7 from 3.1 yesterday repeat labs in AM full liquids po if labs ok in AM, may DC Objective - Results Result Diagrams: 09/27/16 06:10 09/27/16 06:10 Recent Labs: Laboratory Last Values WBC 5.8 Th/cmm (4.8-10.8) 09/27/16 06:10 RBC 4.26 Mil/cmm (3.80-5.10) 09/27/16 06:10 Hgb 12.0 gm/dL (11.7-15.5) 09/27/16 06:10 Hct 35.7 % (35.0-45.0) 09/27/16 06:10 MCV 83.6 fl (81-100) 09/27/16 06:10 MCH 28.1 pg (27.0-31.0) 09/27/16 06:10 MCHC Differential 33.6 pg (28.0-36.0) 09/27/16 06:10 RDW 11.5 % (11.5-20.0) 09/27/16 06:10 Plt Count 256 Th/cmm (150-400) 09/27/16 06:10 MPV 8.2 fl 09/27/16 06:10 Neutrophils % 64.0 % (40.0-80.0) 09/27/16 06:10 Lymphocytes % 24.2 % (20.0-50.0) 09/27/16 06:10 Monocytes % 8.5 % (2.0-10.0) 09/27/16 06:10 Eosinophils % 2.5 % (0.0-5.0) 09/27/16 06:10 Basophils % 0.8 % (0.0-2.0) 09/27/16 06:10 PT 10.7 SECONDS (9.5-11.5) 09/25/16 05:50 INR 1.08 (0.5-1.4) 09/25/16 05:50 PTT (Actin FS) 26.7 SECONDS (26.0-38.0) 09/25/16 05:50 Sodium 138 mEq/L (136-145) 09/27/16 06:10 Potassium 3.0 mEq/L (3.5-5.1) L 09/27/16 06:10 Chloride 107 mEq/L (98-107) 09/27/16 06:10 Carbon Dioxide 27.8 mEq/L (21.0-31.0) 09/27/16 06:10 Anion Gap 6.2 (7.0-16.0) L 09/27/16 06:10 BUN 3 mg/dL (7-25) L 09/27/16 06:10 Creatinine 0.8 mg/dL (0.6-1.2) 09/27/16 06:10 Est GFR ( Amer) > 60.0 ml/min (>90) 09/27/16 06:10 Est GFR (Non-Af Amer) > 60.0 ml/min 09/27/16 06:10 BUN/Creatinine Ratio 3.8 09/27/16 06:10 Glucose 101 mg/dL (70-105) 09/27/16 06:10 Calcium 8.6 mg/dL (8.6-10.3) 09/27/16 06:10 Magnesium 2.1 mg/dL (1.9-2.7) 09/25/16 05:50 Total Bilirubin 1.7 mg/dL (0.3-1.0) H 09/27/16 06:10 AST 149 U/L (13-39) H 09/27/16 06:10 ALT 160 U/L (7-52) H 09/27/16 06:10 Alkaline Phosphatase 244 U/L (34-104) H 09/27/16 06:10 Ammonia 53 umol/L (16-53) 09/25/16 05:50 Total Protein 7.3 gm/dL (6.0-8.3) 09/27/16 06:10 Albumin 3.3 gm/dL (3.7-5.3) L 09/27/16 06:10 Globulin 4.0 gm/dL 09/27/16 06:10 Albumin/Globulin Ratio 0.8 (1.0-1.8) L 09/27/16 06:10 Lipase 18 U/L (11-82) 09/27/16 06:10 Vitamin B12 733 pg/mL (211-946) 09/25/16 05:50 Folic Acid 15.8 ng/mL (>3.0) 09/25/16 05:50 TSH 1.40 uIU/ml (0.34-5.60) 09/25/16 05:50 Urine Source RANDOM 09/25/16 20:15 Urine Color YELLOW 09/25/16 20:15 Urine Clarity CLEAR (CLEAR) 09/25/16 20:15 Urine pH 7.0 09/25/16 20:15 Ur Specific [place] 1.015 (1.005-1.030) 09/25/16 20:15 Urine Protein NEGATIVE mg/dL (NEGATIVE) 09/25/16 20:15 Urine Glucose (UA) 250 mg/dL (NEGATIVE) H 09/25/16 20:15 Urine Ketones NEGATIVE mg/dL (NEGATIVE) 09/25/16 20:15 Urine Blood NEGATIVE (NEGATIVE) 09/25/16 20:15 Urine Nitrate NEGATIVE (NEGATIVE) 09/25/16 20:15 Urine Bilirubin NEGATIVE (NEGATIVE) 09/25/16 20:15 Urine Urobilinogen 4.0 E.U./dL (0.2 - 1.0) H 09/25/16 20:15 Ur Leukocyte Esterase NEGATIVE (NEGATIVE) 09/25/16 20:15 Urine RBC 0-2 /hpf (0-5) 09/25/16 20:15 Urine WBC 0-2 /hpf (0-5) 09/25/16 20:15 Ur Epithelial Cells OCCASIONAL /lpf (FEW) 09/25/16 20:15 Urine Bacteria OCCASIONAL /hpf (NONE SEEN) 09/25/16 20:15 - Physical Exam Vitals and I&O: Vital Signs Temp 97.8 F 09/27/16 03:53 Pulse 75 09/27/16 03:53 Resp 18 09/27/16 03:53 BP 140/90 09/27/16 03:53 Pulse Ox 97 09/27/16 03:53 Intake & Output 09/26/16 09/27/16 09/27/16 18:59 06:59 18:59 Intake Total 1500 500 Balance 1500 500 Weight (lbs) 60.781 kg Intake: Oral 1500 500 Other: # Voids 2 3 # Bowel Movements 0 Active Medications: Current Medications Al Hydrox/Mg Hydrox/Simethicone (Maalox) 30 ml PO Q6HR PRN PRN Reason: GI DISTRESS Stop: 11/23/16 22:57 Albuterol Sulfate (Albuterol 2.5mg/3ml Neb Ud) 2.5 mg HHN Q2HR PRN PRN Reason: Shortness of Breath or Wheeze Stop: 11/23/16 22:55 Clonidine HCl (Catapres) 0.1 mg PO Q6HR PRN PRN Reason: SBP GREATER THAN 160 Stop: 11/23/16 22:55 Escitalopram Oxalate (Lexapro) 10 mg PO DAILY [facility] PRN Reason: Protocol Stop: 11/26/16 08:59 Heparin Sodium (Porcine) (Heparin) 5,000 units SUBQ Q12HR [facility] Stop: 11/24/16 08:59 Last Admin: 09/26/16 20:37 Dose: 5,000 units Levofloxacin (Levaquin Pb) 500 mg in 100 mls @ 100 mls/hr IV Q24HR [facility] Stop: 11/23/16 22:59 Last Admin: 09/26/16 22:06 Dose: 100 mls/hr Dextrose/Sodium Chloride (D5-0.45ns) 1,000 mls @ 80 mls/hr IV .[id number] [facility] Stop: 11/25/16 13:04 Last Admin: 09/27/16 06:24 Dose: 80 mls/hr Ketorolac Tromethamine (Toradol) 30 mg IV Q6H PRN PRN Reason: Pain Stop: 09/30/16 11:28 Last Admin: 09/26/16 20:36 Dose: 30 mg Morphine Sulfate (Morphine) 2 mg IVP Q4HR PRN PRN Reason: Pain (Severe) Stop: 11/23/16 23:00 Last Admin: 09/26/16 17:51 Dose: 2 mg Ondansetron HCl (Zofran) 4 mg IV Q8H PRN PRN Reason: Nausea / Vomiting Stop: 11/23/16 22:57 Last Admin: 09/25/16 09:39 Dose: 4 mg Zolpidem Tartrate (Ambien) 10 mg PO HS PRN PRN Reason: Insomnia Stop: 11/23/16 22:55 Last Admin: 09/26/16 20:37 Dose: 10 mg - Procedures Procedures: Procedures Procedure Code Date LAPAROSCOPIC CHOLECYSTECTOMY 06507 09/24/16 RESECTION OF GALLBLADDER, PERCUTANEOUS ENDOSCOPIC APPROACH [id number] 09/24/16
[2016-09-27] MEDS ORDERED: Potassium Chloride 20 mEq ER Tab PO ONE (09:22)
--- NOTE | 2016-09-27 11:55 | Pathology Report ---
[id number] Collection date: 09/25/2016 Surgeon: Dr. Dewey Romano Specimen Description: Gallbladder. Gross Description: Received in formalin is a 6.5 x 4.0 x 2.5 cm gallbladder with induration and adhesions noted on the outer surface. Opening the gallbladder reveals diffuse mucosal ulceration with multiple yellow gallstones identified measuring up to 2.0 cm in greatest dimension. The gallbladder wall ranges from 0.3 to 0.7 cm in thickness. Sectioning shows no focal lesions. [employer] sections are submitted in one cassette. Gross Pathologic Diagnosis: Cholelithiasis, gallbladder. Microscopic Description: The histologic sections show gallbladder wall and mucosa with mucosal ulceration and chronic inflammation, consisting of increased numbers of lymphocytes and plasma cells. Diagnosis: Chronic cholecystitis, gallbladder. [facility]# [id number] MTDD
--- NOTE | 2016-09-27 12:12 | Internal Medicine Prog Note ---
Internal Medicine Subjective - Subjective Service Date: 09/27/16 (awake, alert, ambulates in room, shayla drain in place 80cc. states she feels much better) Patient seen and examined:: with staff Patient is:: awake Internal Medicine Objective - Results Result Diagrams: 09/27/16 06:10 09/27/16 06:10 Recent Labs: Laboratory Last Values WBC 5.8 Th/cmm (4.8-10.8) 09/27/16 06:10 RBC 4.26 Mil/cmm (3.80-5.10) 09/27/16 06:10 Hgb 12.0 gm/dL (11.7-15.5) 09/27/16 06:10 Hct 35.7 % (35.0-45.0) 09/27/16 06:10 MCV 83.6 fl (81-100) 09/27/16 06:10 MCH 28.1 pg (27.0-31.0) 09/27/16 06:10 MCHC Differential 33.6 pg (28.0-36.0) 09/27/16 06:10 RDW 11.5 % (11.5-20.0) 09/27/16 06:10 Plt Count 256 Th/cmm (150-400) 09/27/16 06:10 MPV 8.2 fl 09/27/16 06:10 Neutrophils % 64.0 % (40.0-80.0) 09/27/16 06:10 Lymphocytes % 24.2 % (20.0-50.0) 09/27/16 06:10 Monocytes % 8.5 % (2.0-10.0) 09/27/16 06:10 Eosinophils % 2.5 % (0.0-5.0) 09/27/16 06:10 Basophils % 0.8 % (0.0-2.0) 09/27/16 06:10 PT 10.7 SECONDS (9.5-11.5) 09/25/16 05:50 INR 1.08 (0.5-1.4) 09/25/16 05:50 PTT (Actin FS) 26.7 SECONDS (26.0-38.0) 09/25/16 05:50 Sodium 138 mEq/L (136-145) 09/27/16 06:10 Potassium 3.0 mEq/L (3.5-5.1) L 09/27/16 06:10 Chloride 107 mEq/L (98-107) 09/27/16 06:10 Carbon Dioxide 27.8 mEq/L (21.0-31.0) 09/27/16 06:10 Anion Gap 6.2 (7.0-16.0) L 09/27/16 06:10 BUN 3 mg/dL (7-25) L 09/27/16 06:10 Creatinine 0.8 mg/dL (0.6-1.2) 09/27/16 06:10 Est GFR ( Amer) > 60.0 ml/min (>90) 09/27/16 06:10 Est GFR (Non-Af Amer) > 60.0 ml/min 09/27/16 06:10 BUN/Creatinine Ratio 3.8 09/27/16 06:10 Glucose 101 mg/dL (70-105) 09/27/16 06:10 Calcium 8.6 mg/dL (8.6-10.3) 09/27/16 06:10 Magnesium 2.1 mg/dL (1.9-2.7) 09/25/16 05:50 Total Bilirubin 1.7 mg/dL (0.3-1.0) H 09/27/16 06:10 AST 149 U/L (13-39) H 09/27/16 06:10 ALT 160 U/L (7-52) H 09/27/16 06:10 Alkaline Phosphatase 244 U/L (34-104) H 09/27/16 06:10 Ammonia 53 umol/L (16-53) 09/25/16 05:50 Total Protein 7.3 gm/dL (6.0-8.3) 09/27/16 06:10 Albumin 3.3 gm/dL (3.7-5.3) L 09/27/16 06:10 Globulin 4.0 gm/dL 09/27/16 06:10 Albumin/Globulin Ratio 0.8 (1.0-1.8) L 09/27/16 06:10 Lipase 18 U/L (11-82) 09/27/16 06:10 Vitamin B12 733 pg/mL (211-946) 09/25/16 05:50 Folic Acid 15.8 ng/mL (>3.0) 09/25/16 05:50 TSH 1.40 uIU/ml (0.34-5.60) 09/25/16 05:50 Urine Source RANDOM 09/25/16 20:15 Urine Color YELLOW 09/25/16 20:15 Urine Clarity CLEAR (CLEAR) 09/25/16 20:15 Urine pH 7.0 09/25/16 20:15 Ur Specific [place] 1.015 (1.005-1.030) 09/25/16 20:15 Urine Protein NEGATIVE mg/dL (NEGATIVE) 09/25/16 20:15 Urine Glucose (UA) 250 mg/dL (NEGATIVE) H 09/25/16 20:15 Urine Ketones NEGATIVE mg/dL (NEGATIVE) 09/25/16 20:15 Urine Blood NEGATIVE (NEGATIVE) 09/25/16 20:15 Urine Nitrate NEGATIVE (NEGATIVE) 09/25/16 20:15 Urine Bilirubin NEGATIVE (NEGATIVE) 09/25/16 20:15 Urine Urobilinogen 4.0 E.U./dL (0.2 - 1.0) H 09/25/16 20:15 Ur Leukocyte Esterase NEGATIVE (NEGATIVE) 09/25/16 20:15 Urine RBC 0-2 /hpf (0-5) 09/25/16 20:15 Urine WBC 0-2 /hpf (0-5) 09/25/16 20:15 Ur Epithelial Cells OCCASIONAL /lpf (FEW) 09/25/16 20:15 Urine Bacteria OCCASIONAL /hpf (NONE SEEN) 09/25/16 20:15 - Physical Exam Vitals and I&O: Vital Signs Temp 97.8 F 09/27/16 03:53 Pulse 75 09/27/16 03:53 Resp 18 09/27/16 03:53 BP 140/90 09/27/16 03:53 Pulse Ox 97 09/27/16 03:53 Intake & Output 09/26/16 09/27/16 09/27/16 18:59 06:59 18:59 Intake Total 1500 500 260 Balance 1500 500 260 Weight (lbs) 134 lb Intake: Intake, IV Amount 260 D5-0.45NS 1,000 ml @ 80 260 mls/hr IV .[id number] [facility] Rx #:[id number] Oral 1500 500 Other: # Voids 2 3 # Bowel Movements 0 Active Medications: Current Medications Al Hydrox/Mg Hydrox/Simethicone (Maalox) 30 ml PO Q6HR PRN PRN Reason: GI DISTRESS Stop: 11/23/16 22:57 Albuterol Sulfate (Albuterol 2.5mg/3ml Neb Ud) 2.5 mg HHN Q2HR PRN PRN Reason: Shortness of Breath or Wheeze Stop: 11/23/16 22:55 Clonidine HCl (Catapres) 0.1 mg PO Q6HR PRN PRN Reason: SBP GREATER THAN 160 Stop: 11/23/16 22:55 Escitalopram Oxalate (Lexapro) 10 mg PO DAILY [facility]ER PRN Reason: Protocol Stop: 11/26/16 08:59 Last Admin: 09/27/16 09:30 Dose: 10 mg Heparin Sodium (Porcine) (Heparin) 5,000 units SUBQ Q12HR [facility] Stop: 11/24/16 08:59 Last Admin: 09/27/16 09:31 Dose: 5,000 units Levofloxacin (Levaquin Pb) 500 mg in 100 mls @ 100 mls/hr IV Q24HR [facility] Stop: 11/23/16 22:59 Last Admin: 09/26/16 22:06 Dose: 100 mls/hr Dextrose/Sodium Chloride (D5-0.45ns) 1,000 mls @ 80 mls/hr IV .[id number] [facility] Stop: 11/25/16 13:04 Last Admin: 09/27/16 09:39 Dose: 80 mls/hr Ketorolac Tromethamine (Toradol) 30 mg IV Q6H PRN PRN Reason: Pain Stop: 09/30/16 11:28 Last Admin: 09/26/16 20:36 Dose: 30 mg Morphine Sulfate (Morphine) 2 mg IVP Q4HR PRN PRN Reason: Pain (Severe) Stop: 11/23/16 23:00 Last Admin: 09/26/16 17:51 Dose: 2 mg Ondansetron HCl (Zofran) 4 mg IV Q8H PRN PRN Reason: Nausea / Vomiting Stop: 11/23/16 22:57 Last Admin: 09/25/16 09:39 Dose: 4 mg Zolpidem Tartrate (Ambien) 10 mg PO HS PRN PRN Reason: Insomnia Stop: 11/23/16 22:55 Last Admin: 09/26/16 20:37 Dose: 10 mg General: weak, alert HEENT: NC/AT Neck: Supple Lungs: CTAB Cardiovascular: RRR, Normal S1, Normal S2, without murmur Abdomen: soft non-tender, non-distended Neurological: no change - Procedures Procedures: Procedures Procedure Code Date LAPAROSCOPIC CHOLECYSTECTOMY 86167 09/24/16 RESECTION OF GALLBLADDER, PERCUTANEOUS ENDOSCOPIC APPROACH [id number] 09/24/16 Internal Medicine Assmt/Plan - Assessment Assessment: abd pain acute cholecystitis intractable vomitting - Plan Plan: monitor lytes ivf for hydration encourage to ambulate f/u labs
[2016-09-27] MEDS ORDERED: D5-0.45NS 1,000 ML IV SCH (12:55)
[2016-09-27] MEDS: Morphine Sulfate 2 mg/mL 1mL Syr IVP PRN ×2 (15:57→19:59)
[2016-09-27] MEDS: Levofloxacin 500mg/100mL 500 MG/100 ML BAG IV SCH (23:25)
[2016-09-28] MEDS: Morphine Sulfate 2 mg/mL 1mL Syr IVP PRN ×2 (06:31→14:15)
[2016-09-28 07:27] LABS: % BASOPHILS 0.6 % (0.0-2.0); % LYMPHOCYTES 27.1 % (20.0-50.0); % NEUTROPHILS 60.3 % (40.0-80.0); HEMATOCRIT 36.5 % (35.0-45.0); HEMOGLOBIN 12.3 gm/dL (11.7-15.5); MEAN CELL VOLUME 83.7 fl (81-100); MEAN CORPUSCULAR HEMOGLOBIN 28.2 pg (27.0-31.0); MEAN CORPUSCULAR HGB CONC 33.7 pg (28.0-36.0); MEAN PLATELET VOLUME 8.3 fl; NEUTROPHILE ABSOLUTE 3.8 Th/cmm (1.8-8.0); PLATELET COUNT 300 Th/cmm (150-400); RED BLOOD COUNT 4.36 Mil/cmm (3.80-5.10); RED CELL DISTRIBUTION WIDTH 11.3 % (11.5-20.0); WHITE BLOOD COUNT 6.3 Th/cmm (4.8-10.8)
[2016-09-28 07:53] LABS: ALB/GLOB RATIO 0.8 (1.0-1.8); ALKALINE PHOSPHATASE 232 U/L (34-104); BUN - UREA NITROGEN 4 mg/dL (7-25); CALCIUM SERUM 8.8 mg/dL (8.6-10.3); CARBON DIOXIDE 27.5 mEq/L (21.0-31.0); CHLORIDE 107 mEq/L (98-107); CREATININE - SERUM 0.8 mg/dL (0.6-1.2); GLUCOSE 113 mg/dL (70-105); MAGNESIUM 1.8 mg/dL (1.9-2.7); POTASSIUM SERUM 3.5 mEq/L (3.5-5.1); SGOT 93 U/L (13-39); SGPT/ALT 128 U/L (7-52); SODIUM SERUM 137 mEq/L (136-145)
--- NOTE | 2016-09-28 12:49 | Internal Medicine Prog Note ---
Internal Medicine Subjective - Subjective Service Date: 09/28/16 (awake, j/p drain in place, patient c/o dizziness, educated patient improtance of getting up slowly. ) Patient seen and examined:: with staff Patient is:: awake Internal Medicine Objective - Results Result Diagrams: 09/28/16 06:00 09/28/16 06:00 Recent Labs: Laboratory Last Values WBC 6.3 Th/cmm (4.8-10.8) 09/28/16 06:00 RBC 4.36 Mil/cmm (3.80-5.10) 09/28/16 06:00 Hgb 12.3 gm/dL (11.7-15.5) 09/28/16 06:00 Hct 36.5 % (35.0-45.0) 09/28/16 06:00 MCV 83.7 fl (81-100) 09/28/16 06:00 MCH 28.2 pg (27.0-31.0) 09/28/16 06:00 MCHC Differential 33.7 pg (28.0-36.0) 09/28/16 06:00 RDW 11.3 % (11.5-20.0) L 09/28/16 06:00 Plt Count 300 Th/cmm (150-400) 09/28/16 06:00 MPV 8.3 fl 09/28/16 06:00 Neutrophils % 60.3 % (40.0-80.0) 09/28/16 06:00 Lymphocytes % 27.1 % (20.0-50.0) 09/28/16 06:00 Monocytes % 8.0 % (2.0-10.0) 09/28/16 06:00 Eosinophils % 4.0 % (0.0-5.0) 09/28/16 06:00 Basophils % 0.6 % (0.0-2.0) 09/28/16 06:00 PT 10.7 SECONDS (9.5-11.5) 09/25/16 05:50 INR 1.08 (0.5-1.4) 09/25/16 05:50 PTT (Actin FS) 26.7 SECONDS (26.0-38.0) 09/25/16 05:50 Sodium 137 mEq/L (136-145) 09/28/16 06:00 Potassium 3.5 mEq/L (3.5-5.1) 09/28/16 06:00 Chloride 107 mEq/L (98-107) 09/28/16 06:00 Carbon Dioxide 27.5 mEq/L (21.0-31.0) 09/28/16 06:00 Anion Gap 6.0 (7.0-16.0) L 09/28/16 06:00 BUN 4 mg/dL (7-25) L 09/28/16 06:00 Creatinine 0.8 mg/dL (0.6-1.2) 09/28/16 06:00 Est GFR ( Amer) > 60.0 ml/min (>90) 09/28/16 06:00 Est GFR (Non-Af Amer) > 60.0 ml/min 09/28/16 06:00 BUN/Creatinine Ratio 5.0 09/28/16 06:00 Glucose 113 mg/dL (70-105) H 09/28/16 06:00 Calcium 8.8 mg/dL (8.6-10.3) 09/28/16 06:00 Magnesium 1.8 mg/dL (1.9-2.7) L 09/28/16 06:00 Total Bilirubin 1.0 mg/dL (0.3-1.0) 09/28/16 06:00 AST 93 U/L (13-39) H 09/28/16 06:00 ALT 128 U/L (7-52) H 09/28/16 06:00 Alkaline Phosphatase 232 U/L (34-104) H 09/28/16 06:00 Ammonia 53 umol/L (16-53) 09/25/16 05:50 Total Protein 7.5 gm/dL (6.0-8.3) 09/28/16 06:00 Albumin 3.4 gm/dL (3.7-5.3) L 09/28/16 06:00 Globulin 4.1 gm/dL 09/28/16 06:00 Albumin/Globulin Ratio 0.8 (1.0-1.8) L 09/28/16 06:00 Lipase 18 U/L (11-82) 09/27/16 06:10 Vitamin B12 733 pg/mL (211-946) 09/25/16 05:50 Folic Acid 15.8 ng/mL (>3.0) 09/25/16 05:50 TSH 1.40 uIU/ml (0.34-5.60) 09/25/16 05:50 Urine Source RANDOM 09/25/16 20:15 Urine Color YELLOW 09/25/16 20:15 Urine Clarity CLEAR (CLEAR) 09/25/16 20:15 Urine pH 7.0 09/25/16 20:15 Ur Specific [place] 1.015 (1.005-1.030) 09/25/16 20:15 Urine Protein NEGATIVE mg/dL (NEGATIVE) 09/25/16 20:15 Urine Glucose (UA) 250 mg/dL (NEGATIVE) H 09/25/16 20:15 Urine Ketones NEGATIVE mg/dL (NEGATIVE) 09/25/16 20:15 Urine Blood NEGATIVE (NEGATIVE) 09/25/16 20:15 Urine Nitrate NEGATIVE (NEGATIVE) 09/25/16 20:15 Urine Bilirubin NEGATIVE (NEGATIVE) 09/25/16 20:15 Urine Urobilinogen 4.0 E.U./dL (0.2 - 1.0) H 09/25/16 20:15 Ur Leukocyte Esterase NEGATIVE (NEGATIVE) 09/25/16 20:15 Urine RBC 0-2 /hpf (0-5) 09/25/16 20:15 Urine WBC 0-2 /hpf (0-5) 09/25/16 20:15 Ur Epithelial Cells OCCASIONAL /lpf (FEW) 09/25/16 20:15 Urine Bacteria OCCASIONAL /hpf (NONE SEEN) 09/25/16 20:15 - Physical Exam Vitals and I&O: Vital Signs Temp 97.4 F 09/28/16 08:00 Pulse 77 09/28/16 08:00 Resp 19 09/28/16 08:00 BP 144/82 09/28/16 08:00 Pulse Ox 98 09/28/16 08:00 Intake & Output 09/27/16 09/28/16 09/28/16 18:59 06:59 18:59 Intake Total 260 250 Output Total 63 Balance 260 187 Intake: Intake, IV Amount 260 D5-0.45NS 1,000 ml @ 80 260 mls/hr IV .[id number] [facility] Rx #:[id number] Oral 250 Output: Drainage 3 Abdomen 3 Other 60 Active Medications: Current Medications Al Hydrox/Mg Hydrox/Simethicone (Maalox) 30 ml PO Q6HR PRN PRN Reason: GI DISTRESS Stop: 11/23/16 22:57 Albuterol Sulfate (Albuterol 2.5mg/3ml Neb Ud) 2.5 mg HHN Q2HR PRN PRN Reason: Shortness of Breath or Wheeze Stop: 11/23/16 22:55 Clonidine HCl (Catapres) 0.1 mg PO Q6HR PRN PRN Reason: SBP GREATER THAN 160 Stop: 11/23/16 22:55 Escitalopram Oxalate (Lexapro) 10 mg PO DAILY JENNIFER PRN Reason: Protocol Stop: 11/26/16 08:59 Last Admin: 09/28/16 08:37 Dose: 10 mg Heparin Sodium (Porcine) (Heparin) 5,000 units SUBQ Q12HR [facility] Stop: 11/24/16 08:59 Last Admin: 09/28/16 08:37 Dose: 5,000 units Levofloxacin (Levaquin Pb) 500 mg in 100 mls @ 100 mls/hr IV Q24HR [facility] Stop: 11/23/16 22:59 Last Admin: 09/27/16 23:25 Dose: 100 mls/hr Dextrose/Sodium Chloride (D5-0.45ns) 1,000 mls @ 60 mls/hr IV .[id number] [facility] Stop: 11/26/16 12:54 Ketorolac Tromethamine (Toradol) 30 mg IV Q6H PRN PRN Reason: Pain Stop: 09/30/16 11:28 Last Admin: 09/28/16 10:53 Dose: 30 mg Morphine Sulfate (Morphine) 2 mg IVP Q4HR PRN PRN Reason: Pain (Severe) Stop: 11/23/16 23:00 Last Admin: 09/28/16 06:31 Dose: 2 mg Ondansetron HCl (Zofran) 4 mg IV Q8H PRN PRN Reason: Nausea / Vomiting Stop: 11/23/16 22:57 Last Admin: 09/27/16 15:57 Dose: 4 mg Zolpidem Tartrate (Ambien) 10 mg PO HS PRN PRN Reason: Insomnia Stop: 11/23/16 22:55 Last Admin: 09/27/16 20:34 Dose: 10 mg General: alert HEENT: NC/AT, PERRLA Neck: Supple Lungs: CTAB Cardiovascular: RRR, Normal S1, Normal S2, without murmur Abdomen: soft non-tender, non-distended, other (shayla drain) - Procedures Procedures: Procedures Procedure Code Date LAPAROSCOPIC CHOLECYSTECTOMY 92197 09/24/16 RESECTION OF GALLBLADDER, PERCUTANEOUS ENDOSCOPIC APPROACH [id number] 09/24/16 Internal Medicine Assmt/Plan - Assessment Assessment: abd pain acute cholecystitis intractable vomitting - Plan Plan: monitor lytes ivf for hydration fall precautions f/u labs
[2016-09-28] MEDS ORDERED: Magnesium Hydroxide (MOM) 30 mL UDC PO PRN (15:05)
[2016-09-28] MEDS ORDERED: Mag Sulfate 2gm/50mL Premix 2 GM/50 ML BAG IV ONE (15:07)
[2016-09-28] MEDS: Levofloxacin 500mg/100mL 500 MG/100 ML BAG IV SCH (22:46)
[2016-09-29 05:49] LABS: % BASOPHILS 0.8 % (0.0-2.0); % EOSINOPHILS 4.8 % (0.0-5.0); % LYMPHOCYTES 26.4 % (20.0-50.0); % MONOCYTES 7.7 % (2.0-10.0); % NEUTROPHILS 60.3 % (40.0-80.0); HEMATOCRIT 37.3 % (35.0-45.0); HEMOGLOBIN 12.4 gm/dL (11.7-15.5); MEAN CELL VOLUME 84.3 fl (81-100); MEAN CORPUSCULAR HGB CONC 33.2 pg (28.0-36.0); MEAN PLATELET VOLUME 8.3 fl; NEUTROPHILE ABSOLUTE 3.5 Th/cmm (1.8-8.0); PLATELET COUNT 332 Th/cmm (150-400); RED BLOOD COUNT 4.42 Mil/cmm (3.80-5.10); RED CELL DISTRIBUTION WIDTH 11.5 % (11.5-20.0); WHITE BLOOD COUNT 5.9 Th/cmm (4.8-10.8)
[2016-09-29 06:18] LABS: ANION GAP 5.3 (7.0-16.0); BUN - UREA NITROGEN 6 mg/dL (7-25); BUN/CREATININE RATIO 7.5; CALCIUM SERUM 8.7 mg/dL (8.6-10.3); CARBON DIOXIDE 28.2 mEq/L (21.0-31.0); CHLORIDE 107 mEq/L (98-107); CREATININE - SERUM 0.8 mg/dL (0.6-1.2); GLUCOSE 107 mg/dL (70-105); POTASSIUM SERUM 3.5 mEq/L (3.5-5.1); SODIUM SERUM 137 mEq/L (136-145)
[2016-09-29] MEDS: Morphine Sulfate 2 mg/mL 1mL Syr IVP PRN ×2 (06:31→13:42)
--- NOTE | 2016-09-29 08:46 | General Progress Note ---
Subjective - Review of Systems Service Date: 09/29/16 Events since last encounter: labs ok ANDRES drainange 30 cc overnight drain removed may DC on low fat diet for 30 days Advil 500 mg tid pc to my office 1 week, call for appt Objective - Results Result Diagrams: 09/29/16 05:00 09/29/16 05:00 Recent Labs: Laboratory Last Values WBC 5.9 Th/cmm (4.8-10.8) 09/29/16 05:00 RBC 4.42 Mil/cmm (3.80-5.10) 09/29/16 05:00 Hgb 12.4 gm/dL (11.7-15.5) 09/29/16 05:00 Hct 37.3 % (35.0-45.0) 09/29/16 05:00 MCV 84.3 fl (81-100) 09/29/16 05:00 MCH 28.0 pg (27.0-31.0) 09/29/16 05:00 MCHC Differential 33.2 pg (28.0-36.0) 09/29/16 05:00 RDW 11.5 % (11.5-20.0) 09/29/16 05:00 Plt Count 332 Th/cmm (150-400) 09/29/16 05:00 MPV 8.3 fl 09/29/16 05:00 Neutrophils % 60.3 % (40.0-80.0) 09/29/16 05:00 Lymphocytes % 26.4 % (20.0-50.0) 09/29/16 05:00 Monocytes % 7.7 % (2.0-10.0) 09/29/16 05:00 Eosinophils % 4.8 % (0.0-5.0) 09/29/16 05:00 Basophils % 0.8 % (0.0-2.0) 09/29/16 05:00 PT 10.7 SECONDS (9.5-11.5) 09/25/16 05:50 INR 1.08 (0.5-1.4) 09/25/16 05:50 PTT (Actin FS) 26.7 SECONDS (26.0-38.0) 09/25/16 05:50 Sodium 137 mEq/L (136-145) 09/29/16 05:00 Potassium 3.5 mEq/L (3.5-5.1) 09/29/16 05:00 Chloride 107 mEq/L (98-107) 09/29/16 05:00 Carbon Dioxide 28.2 mEq/L (21.0-31.0) 09/29/16 05:00 Anion Gap 5.3 (7.0-16.0) L 09/29/16 05:00 BUN 6 mg/dL (7-25) L 09/29/16 05:00 Creatinine 0.8 mg/dL (0.6-1.2) 09/29/16 05:00 Est GFR ( Amer) > 60.0 ml/min (>90) 09/29/16 05:00 Est GFR (Non-Af Amer) > 60.0 ml/min 09/29/16 05:00 BUN/Creatinine Ratio 7.5 09/29/16 05:00 Glucose 107 mg/dL (70-105) H 09/29/16 05:00 Calcium 8.7 mg/dL (8.6-10.3) 09/29/16 05:00 Magnesium 1.8 mg/dL (1.9-2.7) L 09/28/16 06:00 Total Bilirubin 1.0 mg/dL (0.3-1.0) 09/28/16 06:00 AST 93 U/L (13-39) H 09/28/16 06:00 ALT 128 U/L (7-52) H 09/28/16 06:00 Alkaline Phosphatase 232 U/L (34-104) H 09/28/16 06:00 Ammonia 53 umol/L (16-53) 09/25/16 05:50 Total Protein 7.5 gm/dL (6.0-8.3) 09/28/16 06:00 Albumin 3.4 gm/dL (3.7-5.3) L 09/28/16 06:00 Globulin 4.1 gm/dL 09/28/16 06:00 Albumin/Globulin Ratio 0.8 (1.0-1.8) L 09/28/16 06:00 Lipase 18 U/L (11-82) 09/27/16 06:10 Vitamin B12 733 pg/mL (211-946) 09/25/16 05:50 Folic Acid 15.8 ng/mL (>3.0) 09/25/16 05:50 TSH 1.40 uIU/ml (0.34-5.60) 09/25/16 05:50 Urine Source RANDOM 09/25/16 20:15 Urine Color YELLOW 09/25/16 20:15 Urine Clarity CLEAR (CLEAR) 09/25/16 20:15 Urine pH 7.0 09/25/16 20:15 Ur Specific [place] 1.015 (1.005-1.030) 09/25/16 20:15 Urine Protein NEGATIVE mg/dL (NEGATIVE) 09/25/16 20:15 Urine Glucose (UA) 250 mg/dL (NEGATIVE) H 09/25/16 20:15 Urine Ketones NEGATIVE mg/dL (NEGATIVE) 09/25/16 20:15 Urine Blood NEGATIVE (NEGATIVE) 09/25/16 20:15 Urine Nitrate NEGATIVE (NEGATIVE) 09/25/16 20:15 Urine Bilirubin NEGATIVE (NEGATIVE) 09/25/16 20:15 Urine Urobilinogen 4.0 E.U./dL (0.2 - 1.0) H 09/25/16 20:15 Ur Leukocyte Esterase NEGATIVE (NEGATIVE) 09/25/16 20:15 Urine RBC 0-2 /hpf (0-5) 09/25/16 20:15 Urine WBC 0-2 /hpf (0-5) 09/25/16 20:15 Ur Epithelial Cells OCCASIONAL /lpf (FEW) 09/25/16 20:15 Urine Bacteria OCCASIONAL /hpf (NONE SEEN) 09/25/16 20:15 Urine Test NEGATIVE 09/28/16 12:00 - Physical Exam Vitals and I&O: Vital Signs Temp 97.9 F 09/29/16 04:00 Pulse 69 09/29/16 08:00 Resp 20 09/29/16 08:00 BP 135/76 09/29/16 04:00 Pulse Ox 99 09/29/16 08:00 Intake & Output 09/28/16 09/29/16 09/29/16 18:59 06:59 18:59 Intake Total 500 Output Total 40 Balance 500 -40 Intake: Oral 500 Output: Drainage 40 Abdomen 40 Other: # Voids 2 3 Active Medications: Current Medications Al Hydrox/Mg Hydrox/Simethicone (Maalox) 30 ml PO Q6HR PRN PRN Reason: GI DISTRESS Stop: 04/13/17 22:57 Albuterol Sulfate (Albuterol 2.5mg/3ml Neb Ud) 2.5 mg HHN Q2HR PRN PRN Reason: Shortness of Breath or Wheeze Stop: 11/23/16 22:55 Clonidine HCl (Catapres) 0.1 mg PO Q6HR PRN PRN Reason: SBP GREATER THAN 160 Stop: 11/23/16 22:55 Docusate Sodium (Colace) 250 mg PO BID [facility] Stop: 11/27/16 16:59 Last Admin: 09/28/16 16:08 Dose: 250 mg Escitalopram Oxalate (Lexapro) 10 mg PO DAILY JENNIFER PRN Reason: Protocol Stop: 11/26/16 08:59 Last Admin: 09/28/16 08:37 Dose: 10 mg Heparin Sodium (Porcine) (Heparin) 5,000 units SUBQ Q12HR [facility] Stop: 11/24/16 08:59 Last Admin: 09/28/16 08:37 Dose: 5,000 units Levofloxacin (Levaquin Pb) 500 mg in 100 mls @ 100 mls/hr IV Q24HR [facility] Stop: 11/23/16 22:59 Last Admin: 09/28/16 22:46 Dose: 100 mls/hr Dextrose/Sodium Chloride (D5-0.45ns) 1,000 mls @ 60 mls/hr IV .[id number] [facility] Stop: 11/26/16 12:54 Ketorolac Tromethamine (Toradol) 30 mg IV Q6H PRN PRN Reason: Pain Stop: 09/30/16 11:28 Last Admin: 09/28/16 10:53 Dose: 30 mg Magnesium Hydroxide (Milk Of Magnesia) 30 ml PO HS PRN PRN Reason: Constipation Stop: 11/27/16 15:04 Morphine Sulfate (Morphine) 2 mg IVP Q4HR PRN PRN Reason: Pain (Severe) Stop: 11/23/16 23:00 Last Admin: 09/29/16 06:31 Dose: 2 mg Ondansetron HCl (Zofran) 4 mg IV Q8H PRN PRN Reason: Nausea / Vomiting Stop: 11/23/16 22:57 Last Admin: 09/27/16 15:57 Dose: 4 mg Zolpidem Tartrate (Ambien) 10 mg PO HS PRN PRN Reason: Insomnia Stop: 11/23/16 22:55 Last Admin: 09/28/16 21:31 Dose: 10 mg - Procedures Procedures: Procedures Procedure Code Date LAPAROSCOPIC CHOLECYSTECTOMY 82771 09/24/16 RESECTION OF GALLBLADDER, PERCUTANEOUS ENDOSCOPIC APPROACH [id number] 09/24/16
--- NOTE | 2016-09-29 12:17 | Internal Medicine Prog Note ---
Internal Medicine Subjective - Subjective Service Date: 09/29/16 (patient c/o nausea and abdominal pain. ) Patient seen and examined:: with staff Patient is:: awake Internal Medicine Objective - Results Result Diagrams: 09/29/16 05:00 09/29/16 05:00 Recent Labs: Laboratory Last Values WBC 5.9 Th/cmm (4.8-10.8) 09/29/16 05:00 RBC 4.42 Mil/cmm (3.80-5.10) 09/29/16 05:00 Hgb 12.4 gm/dL (11.7-15.5) 09/29/16 05:00 Hct 37.3 % (35.0-45.0) 09/29/16 05:00 MCV 84.3 fl (81-100) 09/29/16 05:00 MCH 28.0 pg (27.0-31.0) 09/29/16 05:00 MCHC Differential 33.2 pg (28.0-36.0) 09/29/16 05:00 RDW 11.5 % (11.5-20.0) 09/29/16 05:00 Plt Count 332 Th/cmm (150-400) 09/29/16 05:00 MPV 8.3 fl 09/29/16 05:00 Neutrophils % 60.3 % (40.0-80.0) 09/29/16 05:00 Lymphocytes % 26.4 % (20.0-50.0) 09/29/16 05:00 Monocytes % 7.7 % (2.0-10.0) 09/29/16 05:00 Eosinophils % 4.8 % (0.0-5.0) 09/29/16 05:00 Basophils % 0.8 % (0.0-2.0) 09/29/16 05:00 PT 10.7 SECONDS (9.5-11.5) 09/25/16 05:50 INR 1.08 (0.5-1.4) 09/25/16 05:50 PTT (Actin FS) 26.7 SECONDS (26.0-38.0) 09/25/16 05:50 Sodium 137 mEq/L (136-145) 09/29/16 05:00 Potassium 3.5 mEq/L (3.5-5.1) 09/29/16 05:00 Chloride 107 mEq/L (98-107) 09/29/16 05:00 Carbon Dioxide 28.2 mEq/L (21.0-31.0) 09/29/16 05:00 Anion Gap 5.3 (7.0-16.0) L 09/29/16 05:00 BUN 6 mg/dL (7-25) L 09/29/16 05:00 Creatinine 0.8 mg/dL (0.6-1.2) 09/29/16 05:00 Est GFR ( Amer) > 60.0 ml/min (>90) 09/29/16 05:00 Est GFR (Non-Af Amer) > 60.0 ml/min 09/29/16 05:00 BUN/Creatinine Ratio 7.5 09/29/16 05:00 Glucose 107 mg/dL (70-105) H 09/29/16 05:00 Calcium 8.7 mg/dL (8.6-10.3) 09/29/16 05:00 Magnesium 1.8 mg/dL (1.9-2.7) L 09/28/16 06:00 Total Bilirubin 1.0 mg/dL (0.3-1.0) 09/28/16 06:00 AST 93 U/L (13-39) H 09/28/16 06:00 ALT 128 U/L (7-52) H 09/28/16 06:00 Alkaline Phosphatase 232 U/L (34-104) H 09/28/16 06:00 Ammonia 53 umol/L (16-53) 09/25/16 05:50 Total Protein 7.5 gm/dL (6.0-8.3) 09/28/16 06:00 Albumin 3.4 gm/dL (3.7-5.3) L 09/28/16 06:00 Globulin 4.1 gm/dL 09/28/16 06:00 Albumin/Globulin Ratio 0.8 (1.0-1.8) L 09/28/16 06:00 Lipase 18 U/L (11-82) 09/27/16 06:10 Vitamin B12 733 pg/mL (211-946) 09/25/16 05:50 Folic Acid 15.8 ng/mL (>3.0) 09/25/16 05:50 TSH 1.40 uIU/ml (0.34-5.60) 09/25/16 05:50 Urine Source RANDOM 09/25/16 20:15 Urine Color YELLOW 09/25/16 20:15 Urine Clarity CLEAR (CLEAR) 09/25/16 20:15 Urine pH 7.0 09/25/16 20:15 Ur Specific [place] 1.015 (1.005-1.030) 09/25/16 20:15 Urine Protein NEGATIVE mg/dL (NEGATIVE) 09/25/16 20:15 Urine Glucose (UA) 250 mg/dL (NEGATIVE) H 09/25/16 20:15 Urine Ketones NEGATIVE mg/dL (NEGATIVE) 09/25/16 20:15 Urine Blood NEGATIVE (NEGATIVE) 09/25/16 20:15 Urine Nitrate NEGATIVE (NEGATIVE) 09/25/16 20:15 Urine Bilirubin NEGATIVE (NEGATIVE) 09/25/16 20:15 Urine Urobilinogen 4.0 E.U./dL (0.2 - 1.0) H 09/25/16 20:15 Ur Leukocyte Esterase NEGATIVE (NEGATIVE) 09/25/16 20:15 Urine RBC 0-2 /hpf (0-5) 09/25/16 20:15 Urine WBC 0-2 /hpf (0-5) 09/25/16 20:15 Ur Epithelial Cells OCCASIONAL /lpf (FEW) 09/25/16 20:15 Urine Bacteria OCCASIONAL /hpf (NONE SEEN) 09/25/16 20:15 Urine Test NEGATIVE 09/28/16 12:00 - Physical Exam Vitals and I&O: Vital Signs Temp 98.2 F 09/29/16 08:00 Pulse 68 09/29/16 08:00 Resp 18 09/29/16 08:00 BP 163/74 09/29/16 08:00 Pulse Ox 99 09/29/16 08:00 Intake & Output 09/28/16 09/29/16 09/29/16 18:59 06:59 18:59 Intake Total 500 Output Total 40 Balance 500 -40 Intake: Oral 500 Output: Drainage 40 Abdomen 40 Other: # Voids 2 3 Active Medications: Current Medications Al Hydrox/Mg Hydrox/Simethicone (Maalox) 30 ml PO Q6HR PRN PRN Reason: GI DISTRESS Stop: 11/23/16 22:57 Albuterol Sulfate (Albuterol 2.5mg/3ml Neb Ud) 2.5 mg HHN Q2HR PRN PRN Reason: Shortness of Breath or Wheeze Stop: 11/23/16 22:55 Clonidine HCl (Catapres) 0.1 mg PO Q6HR PRN PRN Reason: SBP GREATER THAN 160 Stop: 11/23/16 22:55 Docusate Sodium (Colace) 250 mg PO BID [facility] Stop: 11/27/16 16:59 Last Admin: 09/29/16 09:16 Dose: 250 mg Escitalopram Oxalate (Lexapro) 10 mg PO DAILY JENNIFER PRN Reason: Protocol Stop: 11/26/16 08:59 Last Admin: 09/29/16 09:17 Dose: 10 mg Heparin Sodium (Porcine) (Heparin) 5,000 units SUBQ Q12HR [facility] Stop: 11/24/16 08:59 Last Admin: 09/29/16 09:17 Dose: 5,000 units Levofloxacin (Levaquin Pb) 500 mg in 100 mls @ 100 mls/hr IV Q24HR [facility] Stop: 11/23/16 22:59 Last Admin: 09/28/16 22:46 Dose: 100 mls/hr Dextrose/Sodium Chloride (D5-0.45ns) 1,000 mls @ 60 mls/hr IV .[id number] [facility] Stop: 11/26/16 12:54 Ketorolac Tromethamine (Toradol) 30 mg IV Q6H PRN PRN Reason: Pain Stop: 09/30/16 11:28 Last Admin: 09/29/16 09:16 Dose: 30 mg Magnesium Hydroxide (Milk Of Magnesia) 30 ml PO HS PRN PRN Reason: Constipation Stop: 11/27/16 15:04 Morphine Sulfate (Morphine) 2 mg IVP Q4HR PRN PRN Reason: Pain (Severe) Stop: 11/23/16 23:00 Last Admin: 09/29/16 06:31 Dose: 2 mg Ondansetron HCl (Zofran) 4 mg IV Q8H PRN PRN Reason: Nausea / Vomiting Stop: 11/23/16 22:57 Last Admin: 09/27/16 15:57 Dose: 4 mg Zolpidem Tartrate (Ambien) 10 mg PO HS PRN PRN Reason: Insomnia Stop: 11/23/16 22:55 Last Admin: 09/28/16 21:31 Dose: 10 mg General: alert HEENT: NC/AT, PERRLA Neck: Supple Cardiovascular: RRR, Normal S1, Normal S2, without murmur Abdomen: soft non-tender, non-distended - Procedures Procedures: Procedures Procedure Code Date LAPAROSCOPIC CHOLECYSTECTOMY 51448 09/24/16 RESECTION OF GALLBLADDER, PERCUTANEOUS ENDOSCOPIC APPROACH [id number] 09/24/16 Internal Medicine Assmt/Plan - Assessment Assessment: abd pain acute cholecystitis intractable vomitting - Plan Plan: dc in am if stable ivf for hydration fall precautions f/u labs
[2016-09-29] MEDS: Levofloxacin 500mg/100mL 500 MG/100 ML BAG IV SCH (23:35)
[2016-09-30 06:23] LABS: % BASOPHILS 0.6 % (0.0-2.0); % EOSINOPHILS 5.7 % (0.0-5.0); % LYMPHOCYTES 27.4 % (20.0-50.0); % MONOCYTES 7.9 % (2.0-10.0); % NEUTROPHILS 58.4 % (40.0-80.0); HEMATOCRIT 37.1 % (35.0-45.0); HEMOGLOBIN 12.3 gm/dL (11.7-15.5); MEAN CORPUSCULAR HEMOGLOBIN 27.8 pg (27.0-31.0); MEAN CORPUSCULAR HGB CONC 33.1 pg (28.0-36.0); MEAN PLATELET VOLUME 8.3 fl; PLATELET COUNT 313 Th/cmm (150-400); RED BLOOD COUNT 4.41 Mil/cmm (3.80-5.10); RED CELL DISTRIBUTION WIDTH 11.7 % (11.5-20.0); WHITE BLOOD COUNT 5.1 Th/cmm (4.8-10.8)
[2016-09-30 06:26] LABS: ANION GAP 4.5 (7.0-16.0); BUN - UREA NITROGEN 6 mg/dL (7-25); BUN/CREATININE RATIO 7.5; CALCIUM SERUM 8.7 mg/dL (8.6-10.3); CARBON DIOXIDE 27.8 mEq/L (21.0-31.0); CHLORIDE 108 mEq/L (98-107); CREATININE - SERUM 0.8 mg/dL (0.6-1.2); GLUCOSE 105 mg/dL (70-105); POTASSIUM SERUM 3.3 mEq/L (3.5-5.1); SODIUM SERUM 137 mEq/L (136-145)
--- NOTE | 2016-09-30 09:29 | General Progress Note ---
Subjective - Review of Systems Service Date: 09/30/16 Events since last encounter: cbc normal await LFT claims vomiting, and pain history of major depression abdomen is soft, incisions clean, no bleeding if LFT is normal, will need further Psych eval Objective - Results Result Diagrams: 09/30/16 05:15 09/30/16 05:15 Recent Labs: Laboratory Last Values WBC 5.1 Th/cmm (4.8-10.8) 09/30/16 05:15 RBC 4.41 Mil/cmm (3.80-5.10) 09/30/16 05:15 Hgb 12.3 gm/dL (11.7-15.5) 09/30/16 05:15 Hct 37.1 % (35.0-45.0) 09/30/16 05:15 MCV 84.0 fl (81-100) 09/30/16 05:15 MCH 27.8 pg (27.0-31.0) 09/30/16 05:15 MCHC Differential 33.1 pg (28.0-36.0) 09/30/16 05:15 RDW 11.7 % (11.5-20.0) 09/30/16 05:15 Plt Count 313 Th/cmm (150-400) 09/30/16 05:15 MPV 8.3 fl 09/30/16 05:15 Neutrophils % 58.4 % (40.0-80.0) 09/30/16 05:15 Lymphocytes % 27.4 % (20.0-50.0) 09/30/16 05:15 Monocytes % 7.9 % (2.0-10.0) 09/30/16 05:15 Eosinophils % 5.7 % (0.0-5.0) H 09/30/16 05:15 Basophils % 0.6 % (0.0-2.0) 09/30/16 05:15 PT 10.7 SECONDS (9.5-11.5) 09/25/16 05:50 INR 1.08 (0.5-1.4) 09/25/16 05:50 PTT (Actin FS) 26.7 SECONDS (26.0-38.0) 09/25/16 05:50 Sodium 137 mEq/L (136-145) 09/30/16 05:15 Potassium 3.3 mEq/L (3.5-5.1) L 09/30/16 05:15 Chloride 108 mEq/L (98-107) H 09/30/16 05:15 Carbon Dioxide 27.8 mEq/L (21.0-31.0) 09/30/16 05:15 Anion Gap 4.5 (7.0-16.0) L 09/30/16 05:15 BUN 6 mg/dL (7-25) L 09/30/16 05:15 Creatinine 0.8 mg/dL (0.6-1.2) 09/30/16 05:15 Est GFR ( Amer) > 60.0 ml/min (>90) 09/30/16 05:15 Est GFR (Non-Af Amer) > 60.0 ml/min 09/30/16 05:15 BUN/Creatinine Ratio 7.5 09/30/16 05:15 Glucose 105 mg/dL (70-105) 09/30/16 05:15 Calcium 8.7 mg/dL (8.6-10.3) 09/30/16 05:15 Magnesium 1.8 mg/dL (1.9-2.7) L 09/28/16 06:00 Total Bilirubin 1.0 mg/dL (0.3-1.0) 09/28/16 06:00 AST 93 U/L (13-39) H 09/28/16 06:00 ALT 128 U/L (7-52) H 09/28/16 06:00 Alkaline Phosphatase 232 U/L (34-104) H 09/28/16 06:00 Ammonia 53 umol/L (16-53) 09/25/16 05:50 Total Protein 7.5 gm/dL (6.0-8.3) 09/28/16 06:00 Albumin 3.4 gm/dL (3.7-5.3) L 09/28/16 06:00 Globulin 4.1 gm/dL 09/28/16 06:00 Albumin/Globulin Ratio 0.8 (1.0-1.8) L 09/28/16 06:00 Lipase 18 U/L (11-82) 09/27/16 06:10 Vitamin B12 733 pg/mL (211-946) 09/25/16 05:50 Folic Acid 15.8 ng/mL (>3.0) 09/25/16 05:50 TSH 1.40 uIU/ml (0.34-5.60) 09/25/16 05:50 Urine Source RANDOM 09/25/16 20:15 Urine Color YELLOW 09/25/16 20:15 Urine Clarity CLEAR (CLEAR) 09/25/16 20:15 Urine pH 7.0 09/25/16 20:15 Ur Specific [place] 1.015 (1.005-1.030) 09/25/16 20:15 Urine Protein NEGATIVE mg/dL (NEGATIVE) 09/25/16 20:15 Urine Glucose (UA) 250 mg/dL (NEGATIVE) H 09/25/16 20:15 Urine Ketones NEGATIVE mg/dL (NEGATIVE) 09/25/16 20:15 Urine Blood NEGATIVE (NEGATIVE) 09/25/16 20:15 Urine Nitrate NEGATIVE (NEGATIVE) 09/25/16 20:15 Urine Bilirubin NEGATIVE (NEGATIVE) 09/25/16 20:15 Urine Urobilinogen 4.0 E.U./dL (0.2 - 1.0) H 09/25/16 20:15 Ur Leukocyte Esterase NEGATIVE (NEGATIVE) 09/25/16 20:15 Urine RBC 0-2 /hpf (0-5) 09/25/16 20:15 Urine WBC 0-2 /hpf (0-5) 09/25/16 20:15 Ur Epithelial Cells OCCASIONAL /lpf (FEW) 09/25/16 20:15 Urine Bacteria OCCASIONAL /hpf (NONE SEEN) 09/25/16 20:15 Urine Test NEGATIVE 09/28/16 12:00 - Physical Exam Vitals and I&O: Vital Signs Temp 97.5 F 09/30/16 04:00 Pulse 80 09/30/16 04:00 Resp 18 09/30/16 04:00 BP 132/62 09/30/16 04:00 Pulse Ox 97 09/30/16 04:00 Intake & Output 09/29/16 09/30/16 09/30/16 18:59 06:59 18:59 Intake Total 600 Balance 600 Intake: Oral 600 Other: # Voids 3 1 Active Medications: Current Medications Al Hydrox/Mg Hydrox/Simethicone (Maalox) 30 ml PO Q6HR PRN PRN Reason: GI DISTRESS Stop: 11/23/16 22:57 Albuterol Sulfate (Albuterol 2.5mg/3ml Neb Ud) 2.5 mg HHN Q2HR PRN PRN Reason: Shortness of Breath or Wheeze Stop: 11/23/16 22:55 Clonidine HCl (Catapres) 0.1 mg PO Q6HR PRN PRN Reason: SBP GREATER THAN 160 Stop: 11/23/16 22:55 Docusate Sodium (Colace) 250 mg PO BID [facility] Stop: 11/27/16 16:59 Last Admin: 09/29/16 17:31 Dose: 250 mg Escitalopram Oxalate (Lexapro) 10 mg PO DAILY JENNIFER PRN Reason: Protocol Stop: 11/26/16 08:59 Last Admin: 09/29/16 09:17 Dose: 10 mg Heparin Sodium (Porcine) (Heparin) 5,000 units SUBQ Q12HR [facility] Stop: 11/24/16 08:59 Last Admin: 09/29/16 21:35 Dose: 5,000 units Levofloxacin (Levaquin Pb) 500 mg in 100 mls @ 100 mls/hr IV Q24HR [facility] Stop: 11/23/16 22:59 Last Admin: 09/29/16 23:35 Dose: 100 mls/hr Dextrose/Sodium Chloride (D5-0.45ns) 1,000 mls @ 60 mls/hr IV .[id number] [facility] Stop: 11/26/16 12:54 Ketorolac Tromethamine (Toradol) 30 mg IV Q6H PRN PRN Reason: Pain Stop: 09/30/16 11:28 Last Admin: 09/29/16 15:22 Dose: 30 mg Magnesium Hydroxide (Milk Of Magnesia) 30 ml PO HS PRN PRN Reason: Constipation Stop: 11/27/16 15:04 Morphine Sulfate (Morphine) 2 mg IVP Q4HR PRN PRN Reason: Pain (Severe) Stop: 11/23/16 23:00 Last Admin: 09/29/16 13:42 Dose: 2 mg Ondansetron HCl (Zofran) 4 mg IV Q8H PRN PRN Reason: Nausea / Vomiting Stop: 11/23/16 22:57 Last Admin: 09/27/16 15:57 Dose: 4 mg Zolpidem Tartrate (Ambien) 10 mg PO HS PRN PRN Reason: Insomnia Stop: 04/13/17 22:55 Last Admin: 09/29/16 21:35 Dose: 10 mg - Procedures Procedures: Procedures Procedure Code Date LAPAROSCOPIC CHOLECYSTECTOMY 44339 09/24/16 RESECTION OF GALLBLADDER, PERCUTANEOUS ENDOSCOPIC APPROACH [id number] 09/24/16 Nutritional Asmnt/Malnutr-PDOC - Dietary Evaluation Malnutrition Findings (Please click <Entered> for more info): Nutritional Asmnt/Malnutrition Start: 09/29/16 12: 47 Text: Status: Complete Freq: Document 09/29/16 12:47 GSUN (Rec: 09/29/16 13:16 GSUN [email or web address]) Nutritional Asmnt/Malnutrition Patient General Information Nutritional Screening Moderate Risk Screening Diagnosis Acute cholecystitis, abdominal pain, intractable vomiting Subjective Information 61yo F. Spoke to pt and son at bedside. Pt expressed abdominal pain from walking short distance to the bathroom , only able to eat few spoons of food, and no BM for 1-2 weeks, RN aware. Nausea and vomit piror to adm. Son reported poor PO since Sunday/ adm. 09/25 evacuation of the gallbladder. Per EMR meal activity, 100% full liquid yesterday. Current Diet Order/ Nutrition Support Full liquid Patient / S.O Can Pertinent Medications D5, MOM, maalox, colace, morphine, zofran Pertinent Labs 09/25: AST 23, ALT 23, alkaline phosphatase 110H 09/26: AST 309H, ALT 190H, alkaline phosphatase 269H 09/28: AST 93H, ALT 128H, alkaline phosphatase 232H, glucose 113H Nutritional Hx/Data Height 1.55 m Height (Calculated Centimeters) 154.9 Current Weight (lbs) 60.781 kg Weight (Calculated Kilograms) 60.8 Weight (Calculated Grams) 24574.4 [place] Body Weight 105lb Recent Weight Change No Weight Status Approriate GI Symptoms GI Symptoms Constipation Food Allergies No Cultural/Ethnic/Mosque Belief Guamanian. Usual diet at home Unknown. Skin Integrity/Comment: Micah 20. Skin intact. Estimated Nutritional Goals BEE in Kcals: Using Current wt Calories/Kcals/Kg 25-30kcal/kg Kcals Calculated 1520-1824kcal Protein: Using Current wt Protein g/kg/kg Protein Calculated 60.8g Fluid: ml 1520-1824ml (1ml/kcal) Nutritional Problem 1. Problem Problem Altered GI function related to Etiology Acute cholecystitis aeb Signs/Symptoms: Adm dx, abdominal pain causing recent poor PO Intervention/Recommendation Comments 1. Diet advancement per MD. Encourage PO intake. 2. Briefly discussed with pt and son avoiding high-fat and spicy to possible ease pain caused by gallbladder or abdominal discomfort in general. Expected Outcomes/Goals Expected Outcomes/Goals 1. PO intake to meet at least 75% of estimated nutritional needs. Physician Parameters for PEM Serum Albumin (g/dl) 3.1 - 3.4 (Mild)
[2016-09-30 09:55] LABS: ALB/GLOB RATIO 0.9 (1.0-1.8); BILIRUBIN,DIRECT 0.3 mg/dL (0.0-0.2); BILIRUBIN,TOTAL 0.8 mg/dL (0.3-1.0)
[2016-09-30] MEDS: Morphine Sulfate 2 mg/mL 1mL Syr IVP PRN (10:16)
[2016-09-30] MEDS ORDERED: Magnesium Hydroxide (MOM) 30 mL UDC PO ONE (15:09)
[2016-09-30] MEDS ORDERED: Potassium Chloride 20 mEq ER Tab PO ONE (15:10)
[2016-09-30] MEDS ORDERED: Hydrocodone/APAP 5mg/325mg Tab PO PRN (15:22)
--- NOTE | 2016-09-30 15:26 | Internal Medicine Prog Note ---
Internal Medicine Subjective - Subjective Patient seen and examined:: with staff, chart reviewed, other (family at bedside ) Patient is:: awake, interactive, in bed Patient Complaints of:: bloated Per staff patient is:: no adverse event, poor appetite Internal Medicine Objective - Results Result Diagrams: 09/30/16 05:15 09/30/16 05:15 Recent Labs: Laboratory Last Values WBC 5.1 Th/cmm (4.8-10.8) 09/30/16 05:15 RBC 4.41 Mil/cmm (3.80-5.10) 09/30/16 05:15 Hgb 12.3 gm/dL (11.7-15.5) 09/30/16 05:15 Hct 37.1 % (35.0-45.0) 09/30/16 05:15 MCV 84.0 fl (81-100) 09/30/16 05:15 MCH 27.8 pg (27.0-31.0) 09/30/16 05:15 MCHC Differential 33.1 pg (28.0-36.0) 09/30/16 05:15 RDW 11.7 % (11.5-20.0) 09/30/16 05:15 Plt Count 313 Th/cmm (150-400) 09/30/16 05:15 MPV 8.3 fl 09/30/16 05:15 Neutrophils % 58.4 % (40.0-80.0) 09/30/16 05:15 Lymphocytes % 27.4 % (20.0-50.0) 09/30/16 05:15 Monocytes % 7.9 % (2.0-10.0) 09/30/16 05:15 Eosinophils % 5.7 % (0.0-5.0) H 09/30/16 05:15 Basophils % 0.6 % (0.0-2.0) 09/30/16 05:15 PT 10.7 SECONDS (9.5-11.5) 09/25/16 05:50 INR 1.08 (0.5-1.4) 09/25/16 05:50 PTT (Actin FS) 26.7 SECONDS (26.0-38.0) 09/25/16 05:50 Sodium 137 mEq/L (136-145) 09/30/16 05:15 Potassium 3.3 mEq/L (3.5-5.1) L 09/30/16 05:15 Chloride 108 mEq/L (98-107) H 09/30/16 05:15 Carbon Dioxide 27.8 mEq/L (21.0-31.0) 09/30/16 05:15 Anion Gap 4.5 (7.0-16.0) L 09/30/16 05:15 BUN 6 mg/dL (7-25) L 09/30/16 05:15 Creatinine 0.8 mg/dL (0.6-1.2) 09/30/16 05:15 Est GFR ( Amer) > 60.0 ml/min (>90) 09/30/16 05:15 Est GFR (Non-Af Amer) > 60.0 ml/min 09/30/16 05:15 BUN/Creatinine Ratio 7.5 09/30/16 05:15 Glucose 105 mg/dL (70-105) 09/30/16 05:15 Calcium 8.7 mg/dL (8.6-10.3) 09/30/16 05:15 Magnesium 1.8 mg/dL (1.9-2.7) L 09/28/16 06:00 Total Bilirubin 0.8 mg/dL (0.3-1.0) 09/30/16 05:15 Direct Bilirubin 0.30 mg/dL (0.0-0.2) H 09/30/16 05:15 AST 96 U/L (13-39) H 09/30/16 05:15 ALT 103 U/L (7-52) H 09/30/16 05:15 Alkaline Phosphatase 188 U/L (34-104) H 09/30/16 05:15 Ammonia 53 umol/L (16-53) 09/25/16 05:50 Total Protein 7.2 gm/dL (6.0-8.3) 09/30/16 05:15 Albumin 3.3 gm/dL (3.7-5.3) L 09/30/16 05:15 Globulin 3.9 gm/dL 09/30/16 05:15 Albumin/Globulin Ratio 0.9 (1.0-1.8) L 09/30/16 05:15 Lipase 18 U/L (11-82) 09/27/16 06:10 Vitamin B12 733 pg/mL (211-946) 09/25/16 05:50 Folic Acid 15.8 ng/mL (>3.0) 09/25/16 05:50 TSH 1.40 uIU/ml (0.34-5.60) 09/25/16 05:50 Urine Source RANDOM 09/25/16 20:15 Urine Color YELLOW 09/25/16 20:15 Urine Clarity CLEAR (CLEAR) 09/25/16 20:15 Urine pH 7.0 09/25/16 20:15 Ur Specific [place] 1.015 (1.005-1.030) 09/25/16 20:15 Urine Protein NEGATIVE mg/dL (NEGATIVE) 09/25/16 20:15 Urine Glucose (UA) 250 mg/dL (NEGATIVE) H 09/25/16 20:15 Urine Ketones NEGATIVE mg/dL (NEGATIVE) 09/25/16 20:15 Urine Blood NEGATIVE (NEGATIVE) 09/25/16 20:15 Urine Nitrate NEGATIVE (NEGATIVE) 09/25/16 20:15 Urine Bilirubin NEGATIVE (NEGATIVE) 09/25/16 20:15 Urine Urobilinogen 4.0 E.U./dL (0.2 - 1.0) H 09/25/16 20:15 Ur Leukocyte Esterase NEGATIVE (NEGATIVE) 09/25/16 20:15 Urine RBC 0-2 /hpf (0-5) 09/25/16 20:15 Urine WBC 0-2 /hpf (0-5) 09/25/16 20:15 Ur Epithelial Cells OCCASIONAL /lpf (FEW) 09/25/16 20:15 Urine Bacteria OCCASIONAL /hpf (NONE SEEN) 09/25/16 20:15 Urine Test NEGATIVE 09/28/16 12:00 - Physical Exam Vitals and I&O: Vital Signs Temp 97.3 F 09/30/16 14:42 Pulse 65 09/30/16 14:42 Resp 18 09/30/16 14:42 BP 143/67 09/30/16 14:42 Pulse Ox 98 09/30/16 14:42 Intake & Output 09/29/16 09/30/16 09/30/16 18:59 06:59 18:59 Intake Total 600 Balance 600 Intake: Oral 600 Other: # Voids 3 1 Active Medications: Current Medications Acetaminophen/Hydrocodone Bitart ([place] 5mg/325mg) 1 tab PO Q4H PRN PRN Reason: Pain (Severe) Stop: 11/29/16 15:21 Al Hydrox/Mg Hydrox/Simethicone (Maalox) 30 ml PO Q6HR PRN PRN Reason: GI DISTRESS Stop: 11/23/16 22:57 Albuterol Sulfate (Albuterol 2.5mg/3ml Neb Ud) 2.5 mg HHN Q2HR PRN PRN Reason: Shortness of Breath or Wheeze Stop: 11/23/16 22:55 Bisacodyl (Dulcolax 10 Mg Supp) 10 mg RC DAILY PRN PRN Reason: Constipation Stop: 11/29/16 15:09 Bisacodyl (Dulcolax 10 Mg Supp) 10 mg RC NOW ONE Stop: 09/30/16 15:23 Clonidine HCl (Catapres) 0.1 mg PO Q6HR PRN PRN Reason: SBP GREATER THAN 160 Stop: 11/23/16 22:55 Docusate Sodium (Colace) 250 mg PO BID [facility] Stop: 11/27/16 16:59 Last Admin: 09/30/16 10:03 Dose: 250 mg Escitalopram Oxalate (Lexapro) 10 mg PO DAILY JENNIFER PRN Reason: Protocol Stop: 11/26/16 08:59 Last Admin: 09/30/16 10:03 Dose: 10 mg Heparin Sodium (Porcine) (Heparin) 5,000 units SUBQ Q12HR JENN[facility]ER Stop: 11/24/16 08:59 Last Admin: 09/30/16 10:02 Dose: 5,000 units Levofloxacin (Levaquin Pb) 500 mg in 100 mls @ 100 mls/hr IV Q24HR [facility] Stop: 11/23/16 22:59 Last Admin: 09/29/16 23:35 Dose: 100 mls/hr Dextrose/Sodium Chloride (D5-0.45ns) 1,000 mls @ 60 mls/hr IV .[id number] JENNIFER Stop: 11/26/16 12:54 Last Admin: 09/30/16 11:17 Dose: 60 mls/hr Magnesium Hydroxide (Milk Of Magnesia) 30 ml PO HS PRN PRN Reason: Constipation Stop: 11/27/16 15:04 Magnesium Hydroxide (Milk Of Magnesia) 30 ml PO X1 ONE Stop: 09/30/16 15:10 Morphine Sulfate (Morphine) 2 mg IVP Q4HR PRN PRN Reason: Pain (Severe) Stop: 11/23/16 23:00 Last Admin: 09/30/16 10:16 Dose: 2 mg Ondansetron HCl (Zofran) 4 mg IV Q8H PRN PRN Reason: Nausea / Vomiting Stop: 11/23/16 22:57 Last Admin: 09/30/16 10:02 Dose: 4 mg Zolpidem Tartrate (Ambien) 10 mg PO HS PRN PRN Reason: Insomnia Stop: 11/23/16 22:55 Last Admin: 09/29/16 21:35 Dose: 10 mg General: alert HEENT: NC/AT, PERRLA Neck: Supple Lungs: CTAB Cardiovascular: RRR, Normal S1, Normal S2 Abdomen: soft non-tender, globular, other (pain w palp) Extremities: excoriation Neurological: no change - Procedures Procedures: Procedures Procedure Code Date LAPAROSCOPIC CHOLECYSTECTOMY 97178 09/24/16 RESECTION OF GALLBLADDER, PERCUTANEOUS ENDOSCOPIC APPROACH [id number] 09/24/16 Internal Medicine Assmt/Plan - Assessment Assessment: gallstone sp zelda abd pain n/v constipation debilitation depression - Plan Plan: will give laxative probiotic oob pain control switch to oral dw rn Nutritional Asmnt/Malnutr-PDOC - Dietary Evaluation Malnutrition Findings (Please click <Entered> for more info): Nutritional Asmnt/Malnutrition Start: 09/29/16 12: 47 Text: Status: Complete Freq: Document 09/29/16 12:47 GSUN (Rec: 09/29/16 13:16 [facility] Nutritional Asmnt/Malnutrition Patient General Information Nutritional Screening Moderate Risk Screening Diagnosis Acute cholecystitis, abdominal pain, intractable vomiting Subjective Information 61yo F. Spoke to pt and son at bedside. Pt expressed abdominal pain from walking short distance to the bathroom , only able to eat few spoons of food, and no BM for 1-2 weeks, RN aware. Nausea and vomit piror to adm. Son reported poor PO since Sunday/ adm. 09/25 evacuation of the gallbladder. Per EMR meal activity, 100% full liquid yesterday. Current Diet Order/ Nutrition Support Full liquid Patient / S.O Can Pertinent Medications D5, MOM, maalox, colace, morphine, zofran Pertinent Labs 09/25: AST 23, ALT 23, alkaline phosphatase 110H 09/26: AST 309H, ALT 190H, alkaline phosphatase 269H 09/28: AST 93H, ALT 128H, alkaline phosphatase 232H, glucose 113H Nutritional Hx/Data Height 1.55 m Height (Calculated Centimeters) 154.9 Current Weight (lbs) 60.781 kg Weight (Calculated Kilograms) 60.8 Weight (Calculated Grams) 47446.4 [place] Body Weight 105lb Recent Weight Change No Weight Status Approriate GI Symptoms GI Symptoms Constipation Food Allergies No Cultural/Ethnic/Scientology Belief Turkish. Usual diet at home Unknown. Skin Integrity/Comment: Micah 20. Skin intact. Estimated Nutritional Goals BEE in Kcals: Using Current wt Calories/Kcals/Kg 25-30kcal/kg Kcals Calculated 1520-1824kcal Protein: Using Current wt Protein g/kg/kg Protein Calculated 60.8g Fluid: ml 1520-1824ml (1ml/kcal) Nutritional Problem 1. Problem Problem Altered GI function related to Etiology Acute cholecystitis aeb Signs/Symptoms: Adm dx, abdominal pain causing recent poor PO Intervention/Recommendation Comments 1. Diet advancement per MD. Encourage PO intake. 2. Briefly discussed with pt and son avoiding high-fat and spicy to possible ease pain caused by gallbladder or abdominal discomfort in general. Expected Outcomes/Goals Expected Outcomes/Goals 1. PO intake to meet at least 75% of estimated nutritional needs. Physician Parameters for PEM Serum Albumin (g/dl) 3.1 - 3.4 (Mild)
[2016-09-30] MEDS: Morphine Sulfate 2 mg/mL 1mL Syr IVP SCH (22:57)
[2016-09-30] MEDS: Levofloxacin 500mg/100mL 500 MG/100 ML BAG IV SCH (22:58)
[2016-10-01 06:16] LABS: ALB/GLOB RATIO 0.9 (1.0-1.8); ALKALINE PHOSPHATASE 194 U/L (34-104); ANION GAP 7.9 (7.0-16.0); BILIRUBIN,TOTAL 0.7 mg/dL (0.3-1.0); BUN - UREA NITROGEN 8 mg/dL (7-25); BUN/CREATININE RATIO 8.9; CARBON DIOXIDE 28.5 mEq/L (21.0-31.0); CHLORIDE 105 mEq/L (98-107); CREATININE - SERUM 0.9 mg/dL (0.6-1.2); GLUCOSE 101 mg/dL (70-105); MAGNESIUM 2.3 mg/dL (1.9-2.7); POTASSIUM SERUM 3.4 mEq/L (3.5-5.1); SGOT 69 U/L (13-39); SGPT/ALT 97 U/L (7-52); SODIUM SERUM 138 mEq/L (136-145)
[2016-10-01] MEDS: Morphine Sulfate 2 mg/mL 1mL Syr IVP SCH (09:07)
--- NOTE | 2016-10-01 23:09 | Discharge Summary ---
CHIEF COMPLAINT: Abdominal pain, transferred from [place]. HISTORY OF PRESENT ILLNESS: This is a 61-year-old [place] female without significant past medical history except for possible depression, was seen initially at [place] ER secondary to abdominal pain. The patient was noted to have multiple gallstones with elevated liver function tests and ____. The patient was transferred for further management. PHYSICAL EXAMINATION: VITAL SIGNS: Blood pressure 134/73, respirations 18, pulse 73, and temperature 98.7. GENERAL: Elderly female, appears her stated age. NECK: Supple. No mass. LUNGS: Equal breath sounds, a few rhonchi. HEART: Regular rate and rhythm without appreciable murmur. ABDOMEN: Soft and nontender. EXTREMITIES: Positive excoriations. NEUROLOGICAL: Limited. HOSPITAL COURSE: The patient was admitted to medical floor, continued IV hydration, IV antibiotic, and IV narcotic medication. The patient was referred to Dr. Romano as well as Dr. Frazier. The patient underwent laparoscopic cholecystectomy and did well, only complicated by a persistent pain and vomiting. This was deemed to be secondary to her mental condition. The patient is ____. CONDITION ON DISCHARGE: Fair. DISCHARGE INSTRUCTIONS: The patient to continue current medical regimen. The patient to follow up with her primary care doctor. [facility]# [id number]
== END 2016-10-01 14:00 | disposition home or self-care (01) | DRG 263 ==
LOC: MSI 21:05
PROVIDERS: ADMIT Internal Medicine; ATTEND Internal Medicine
PROC: 0FT44ZZ Resection of Gallbladder, Percutaneous Endoscopic Approach (ICD-10-PCS; principal; 2016-09-25)
DX: K80.00 Calculus of gallbladder with acute cholecystitis without obstruction (principal); E87.8 Other disorders of electrolyte and fluid balance, not elsewhere classified; E44.0 Moderate protein-calorie malnutrition; K82.1 Hydrops of gallbladder; F33.1 Major depressive disorder, recurrent, moderate; K59.00 Constipation, unspecified; Z68.25 Body mass index [BMI] 25.0-25.9, adult
CPT/HCPCS: 36415-UA; 71010-TC; 80048-TC; 80053-TC; 80076-TC; 81001-TC; 81025-TC; 82140-TC; 82607-90; 82746-90; 83690-TC; 83735-TC; 84443-TC; 85025-TC; 85610-TC; 87070-90; 87075-90; 87205-90; 88304-TC; 90782; 90799; 93005; 94760; J0690; J1644; J1885; J1956; J2250; J2270; J2405; J2704; J2710; J3475; J7042; V2790; X6024; X6026; X6258; X6490; Z7610